=== PATIENT | male | born 1965 | race African-American/Black ===

== ENCOUNTER 2019-10-10 10:10 | Inpatient (IN) | payer MEDICAID ==
[2019-10-10] VITALS (7 sets, daily range): BP systolic 113–133; BP diastolic 52–87
[~2019-10-10] VITALS: Ht 172.7 cm; Wt 62.1 kg
[2019-10-10 13:22] LABS: BG BASE EXCESS -0.6 mmol/L (-2.0-2.0); BG CARBOXYHEMOGLOBIN 0.8 % (0.5-1.5); BG DEOXYHEMOGLOBIN 9.9 % (0.0-5.0); BG FRACTION INSPIRED OXYGEN 21; BG HCO3 ACT 23.8 mmol/L (22.0-26.0); BG METHEMOGLOBIN 0.3 % (0.0-1.5); BG PCO2 37.9 mmHg (35.0-45.0); BG PH 7.415 (7.350-7.450); BG PO2 61.7 mmHg (75.0-100.0); BG SAMPLE SITE RIGHT BRACHIAL; BG TOTAL HEMOGLOBIN 10.4 g/dL (12.0-18.0); BG VENT MODE ROOM AIR
[2019-10-10] MEDS ORDERED: HYDROMORPHONE HCL 4MG TABLET PO PRN (15:00)
[2019-10-10] MEDS ORDERED: ACETAMINOPHEN 325MG TABLET PO PRN ×2 (15:00→15:15)
[2019-10-10] MEDS ORDERED: ONDANSETRON HCL 4MG/2ML INJ IV PRN ×2 (15:00→15:15)
[2019-10-10 15:14] LABS: BASOPHILS % 1.5 % (0.0-2.0); EOSINOPHILS % 1.5 % (0.0-5.0); HEMATOCRIT. 28.8 % (42.0-52.0); HEMOGLOBIN. 8.8 g/dL (14.0-18.0); LYMPHOCYTES % 13.3 % (20.0-50.0); MEAN CORPUSCULAR HEMOGLOBIN 23.4 pg (28.0-32.0); MEAN PLATELET VOLUME 8.7 fl (7.4-10.4); MONOCYTES % 8.4 % (2.0-8.0); NEUTROPHILS % 75.3 % (40.0-76.0); PLATELET 362 x1000/uL (130-400); RED BLOOD CELL COUNT 3.78 mill/uL (4.7-6.1)
[2019-10-10] MEDS ORDERED: NITROGLYCERIN 0.4MG TABLET SL SL PRN (15:15)
[2019-10-10] MEDS ORDERED: ZOLPIDEM TARTRATE 5MG TABLET PO PRN (15:15)
[2019-10-10] MEDS ORDERED: IPRATROPIUM/ALBUTEROL 0.5-3(2.5)MG/3ML NEB NEB PRN (15:15)
[2019-10-10] MEDS ORDERED: DOCUSATE SODIUM 100MG CAPSULE PO PRN (15:15)
[2019-10-10] MEDS ORDERED: GUAIFENESIN 200MG/10ML SUGAR FREE UDC PO PRN (15:15)
[2019-10-10] MEDS ORDERED: LORAZEPAM 0.5MG TABLET PO PRN (15:15)
[2019-10-10] MEDS ORDERED: CLONIDINE 0.1MG TABLET PO PRN (15:15)
[2019-10-10] MEDS ORDERED: MAGNESIUM/ALUMINUM HYDROXIDE/SIMETHICONE 30ML UDC PO PRN (15:15)
[2019-10-10] MEDS ORDERED: DIPHENHYDRAMINE 50MG/ML VIAL IV PRN (15:15)
[2019-10-10] MEDS: TRAMADOL 50MG TABLET PO PRN ×2 (15:35→23:37)
[2019-10-10 15:36] LABS: INR 1.3; PARTIAL THROMBOPLASTIN TIME 34.4 sec (23.4-31.0); PROTHROMBIN TIME 13.6 sec (9.6-11.0)
[2019-10-10] MEDS: ENOXAPARIN 30MG/0.3ML SYR SUBCUT SCH (16:31)
[2019-10-10] MEDS: GABAPENTIN 100MG CAPSULE PO SCH (17:05)
[2019-10-10] MEDS ORDERED: DEXTROSE 50% WATER 50ML SYRINGE IV PRN (18:15)
[2019-10-10] MEDS: ASCORBIC ACID 500 MG TABLET PO SCH (20:11)
[2019-10-10] MEDS: DOCUSATE SODIUM 100MG CAPSULE PO SCH (20:11)
[2019-10-10] MEDS: FAMOTIDINE 20MG TABLET PO SCH (20:11)
[2019-10-10] MEDS: ATORVASTATIN CALCIUM 40MG TABLET PO SCH (20:11)
[2019-10-10] MEDS: BLOOD SUGAR DIAGNOSTIC STRIP TEST SCH (20:12)
[2019-10-10] MEDS: METOPROLOL TARTRATE 25MG TABLET PO SCH (20:12)
[2019-10-10] MEDS: MORPHINE SULFATE 2 MG/ML CPJ (NOT FOR IM USE) IV PRN (20:13)
[2019-10-10] MEDS: INSULIN LISPRO 100 UNITS/ML SUBCUT SCH (20:31)
[2019-10-10] MEDS ORDERED: IOHEXOL-350 100 ML BOTTLE ONE (23:34)
[2019-10-11] VITALS (11 sets, daily range): BP systolic 101–135; BP diastolic 43–91
[2019-10-11] MEDS: BLOOD SUGAR DIAGNOSTIC STRIP TEST SCH ×4 (06:04→21:00)
[2019-10-11] MEDS ORDERED: PANTOPRAZOLE 40MG DR TABLET PO SCH (06:50)
[2019-10-11] MEDS: MORPHINE SULFATE 2 MG/ML CPJ (NOT FOR IM USE) IV PRN ×3 (07:04→21:03)
[2019-10-11 07:12] LABS: BASOPHILS % 1.5 % (0.0-2.0); EOSINOPHILS % 1.9 % (0.0-5.0); HEMOGLOBIN. 8.1 g/dL (14.0-18.0); LYMPHOCYTES % 14.5 % (20.0-50.0); MEAN CORPUSCULAR HEMOGLOBIN 23.7 pg (28.0-32.0); MEAN CORPUSCULAR VOLUME 76.1 fL (80.0-94.0); MONOCYTES % 10.3 % (2.0-8.0); NEUTROPHILS % 71.8 % (40.0-76.0); PLATELET 343 x1000/uL (130-400); RED BLOOD CELL COUNT 3.42 mill/uL (4.7-6.1); RED CELL DISTRIBUTION WIDTH 15.9 % (11.6-14.6)
[2019-10-11 07:19] LABS: PHOSPHORUS 5.8 mg/dL (2.5-4.9)
[2019-10-11] MEDS: POLYETHYLENE GLYCOL 3350 (17GM) 1 DOSE PACK PO SCH ×2 (08:25→08:39)
[2019-10-11] MEDS: GABAPENTIN 100MG CAPSULE PO SCH ×2 (08:25→16:15)
[2019-10-11] MEDS: ZINC SULFATE 220 MG ( 50 ) CAPSULE PO SCH (08:26)
[2019-10-11] MEDS: METOPROLOL TARTRATE 25MG TABLET PO SCH (08:26)
[2019-10-11] MEDS: FAMOTIDINE 20MG TABLET PO SCH (08:26)
[2019-10-11] MEDS: ASCORBIC ACID 500 MG TABLET PO SCH (08:26)
[2019-10-11] MEDS: INSULIN LISPRO 100 UNITS/ML SUBCUT SCH ×4 (08:28→21:14)
[2019-10-11] MEDS ORDERED: LISINOPRIL 20MG TABLET PO SCH (09:00)
[2019-10-11] MEDS ORDERED: ASPIRIN 81MG TABLET PO SCH (09:00)
[2019-10-11] MEDS ORDERED: HEPARIN SODIUM 1,000 UNIT/1ML VIAL IV ONE (09:30)
[2019-10-11] MEDS: SEVELAMER CARBONATE 800 MG TABLET PO SCH ×2 (12:55→16:22)
[2019-10-11] MEDS: ENOXAPARIN 30MG/0.3ML SYR SUBCUT SCH (16:14)
[2019-10-11] MEDS ORDERED: NITROGLYCERIN 0.4MG TABLET SL SL PRN (17:00)
[2019-10-11] MEDS ORDERED: ACETAMINOPHEN 325MG TABLET PO PRN (17:00)
[2019-10-11] MEDS ORDERED: ALPRAZOLAM 0.25 MG TABLET PO PRN (17:00)
[2019-10-11] MEDS ORDERED: VANCOMYCIN 1250MG in DEXTROSE 5% WATER 250ML IV SCH (18:00)
[2019-10-11] MEDS: TRAMADOL 50MG TABLET PO PRN (18:56)
[2019-10-11] MEDS: IPRATROPIUM/ALBUTEROL 0.5-3(2.5)MG/3ML NEB HHN SCH (20:07)
[2019-10-11] MEDS ORDERED: DOCUSATE SODIUM 100MG CAPSULE PO SCH (21:00)
[2019-10-11] MEDS ORDERED: BISACODYL 10MG SUPP PR PRN (21:00)
[2019-10-11] MEDS ORDERED: EPOETIN ALFA 10000UNITS/ML VIAL SUBCUT SCH (21:00)
[2019-10-11] MEDS ORDERED: ASCORBIC ACID 500 MG TABLET PO SCH (21:00)
[2019-10-11] MEDS ORDERED: CHLORHEXIDINE GLUCONATE 4% EXTERNAL USE TOP SCH (21:00)
[2019-10-11] MEDS: ALLOPURINOL 300 MG TABLET PO SCH (21:01)
[2019-10-11] MEDS: CARVEDILOL 3.125 MG TABLET PO SCH (21:02)
[2019-10-11] MEDS: ATORVASTATIN CALCIUM 40MG TABLET PO SCH (21:02)
[2019-10-11] MEDS: DOCUSATE SODIUM 100MG CAPSULE PO SCH (21:02)
[2019-10-11] MEDS: SODIUM CHLORIDE 0.9% INJ 3ML FLUSH IVF SCH (21:14)
[2019-10-11] MEDS ORDERED: IOHEXOL-350 100 ML BOTTLE ONE (23:01)
[2019-10-12] VITALS (25 sets, daily range): BP systolic 26–125; BP diastolic 14–74
[2019-10-12] MEDS: IPRATROPIUM/ALBUTEROL 0.5-3(2.5)MG/3ML NEB HHN SCH ×3 (01:27→19:54)
[2019-10-12 04:07] LABS: BASOPHILS % 2.5 % (0.0-2.0); EOSINOPHILS % 1.9 % (0.0-5.0); HEMATOCRIT. 26.1 % (42.0-52.0); HEMOGLOBIN. 8.1 g/dL (14.0-18.0); LYMPHOCYTES % 15.4 % (20.0-50.0); MEAN CORPUSCULAR HEMOGLOBIN 23.5 pg (28.0-32.0); MEAN CORPUSCULAR VOLUME 75.6 fL (80.0-94.0); MEAN PLATELET VOLUME 8.5 fl (7.4-10.4); MONOCYTES % 11.6 % (2.0-8.0); NEUTROPHILS % 68.6 % (40.0-76.0); PLATELET 295 x1000/uL (130-400); RED BLOOD CELL COUNT 3.44 mill/uL (4.7-6.1)
[2019-10-12 04:09] LABS: CHLORIDE 98 mEq/L (98-107)
[2019-10-12 04:10] LABS: INR 1.3; PROTHROMBIN TIME 13.7 sec (9.6-11.0)
[2019-10-12 04:17] LABS: PHOSPHORUS 4.8 mg/dL (2.5-4.9)
[2019-10-12] MEDS: ALLOPURINOL 300 MG TABLET PO SCH (05:38)
[2019-10-12] MEDS: SODIUM CHLORIDE 0.9% INJ 3ML FLUSH IVF SCH ×2 (05:46→22:00)
[2019-10-12] MEDS ORDERED: BLOOD SUGAR DIAGNOSTIC STRIP TEST NR (06:00)
[2019-10-12] MEDS: BLOOD SUGAR DIAGNOSTIC STRIP TEST SCH (06:03)
[2019-10-12] MEDS: INSULIN LISPRO 100 UNITS/ML SUBCUT SCH (07:20)
[2019-10-12] MEDS: SEVELAMER CARBONATE 800 MG TABLET PO SCH (07:20)
[2019-10-12] MEDS ORDERED: SKIN ADHESIVE 0.7 GM EA TOP ONE ×2 (07:21→07:22)
[2019-10-12] MEDS ORDERED: BACITRACIN 15GM TUBE TOP ONE (07:21)
[2019-10-12] MEDS ORDERED: THROMBIN (BOVINE) 5000 UNITS/VIAL TOP ONE ×3 (07:22→16:15)
[2019-10-12] MEDS ORDERED: NORMAL SALINE 0.9% 10 ML SYR ONE (07:22)
[2019-10-12] MEDS ORDERED: SODIUM CHLORIDE 0.9% IRRIG SOL 8,000 ML IR ONE (07:23)
[2019-10-12] MEDS ORDERED: SODIUM CHLORIDE 0.9% 4,000 ML ONE (07:23)
[2019-10-12] MEDS ORDERED: BACITRACIN 50,000 UNITS/VIAL ONE (07:23)
[2019-10-12] MEDS ORDERED: DEL NIDO ELECTROLYTE-S(PH 7.4) 1,000 ML IV PRN ×2 (08:00)
[2019-10-12] MEDS ORDERED: DOBUTAMINE 250MG PREMIX 250 ML IV PRN (08:00)
[2019-10-12] MEDS ORDERED: NOREPINEPHRINE 4 MG in DEXT 5% WATER 246 ML IV PRN (08:00)
[2019-10-12] MEDS ORDERED: EPINEPHRINE 4 MG in DEXT 5% WATER 246 ML IV PRN (08:00)
[2019-10-12] MEDS ORDERED: CEFAZOLIN 2,000 MG in DEXT 5% WATER 100 ML IV PRN (08:00)
[2019-10-12] MEDS ORDERED: NICARDIPINE 40MG/200ML PREMIX 200 ML IV PRN (08:00)
[2019-10-12] MEDS ORDERED: AMINOCAPROIC ACID 10,000 MG in SODIUM CHLORIDE 0.9% 460 ML IV PRN (08:00)
[2019-10-12] MEDS ORDERED: PAPAVERINE HCL 180MG in SODIUM CHLORIDE 0.9% 24ML IV PRN (08:00)
[2019-10-12] MEDS ORDERED: INSULIN REGULAR (DRIP) 100 UNITS in SODIUM CHLORIDE 0.9% 99 ML IV PRN (08:00)
[2019-10-12] MEDS ORDERED: PHENYLEPHRINE 10 MG in DEXT 5% WATER 249 ML IV PRN (08:00)
[2019-10-12] MEDS ORDERED: HEPARIN 1000 UNITS/ML 10ML ONE ×3 (08:40→15:11)
[2019-10-12] MEDS ORDERED: ACETAMINOPHEN 500MG TABLET ONE (08:40)
[2019-10-12] MEDS ORDERED: FENTANYL CITRATE/PF 50MCG/ML 5ML VIAL ONE (08:45)
[2019-10-12] MEDS ORDERED: MIDAZOLAM HCL 2 MG/2 ML VIAL ONE (08:45)
[2019-10-12] MEDS ORDERED: ETOMIDATE 2MG/ML 10ML VIAL IV ONE (08:47)
[2019-10-12] MEDS ORDERED: LABETALOL HCL 5MG/ML VIAL 20ML IV ONE (08:48)
[2019-10-12] MEDS ORDERED: PHENYLEPHRINE HCL 10 MG/ML 1ML (IV VIAL) IV ONE ×2 (08:49→09:23)
[2019-10-12] MEDS ORDERED: SODIUM CHLORIDE 0.9% 10ML VIAL ONE (08:49)
[2019-10-12] MEDS ORDERED: CHLORHEXIDINE GLUCONATE 4% EXTERNAL USE TOP SCH (09:00)
[2019-10-12] MEDS ORDERED: FAMOTIDINE 20MG TABLET PO SCH (09:00)
[2019-10-12] MEDS ORDERED: ASCORBIC ACID 500 MG TABLET PO SCH (09:00)
[2019-10-12] MEDS ORDERED: LIDOCAINE HCL/PF 2% 20MG/ML 5 ML/VIAL ONE (09:03)
[2019-10-12] MEDS ORDERED: AMINOCAPROIC ACID 250 MG/ML 20ML VIAL ONE ×2 (09:22→10:22)
[2019-10-12] MEDS ORDERED: CALCIUM CHLORIDE 1GM/10ML SYR IV ONE (09:23)
[2019-10-12] MEDS ORDERED: MANNITOL 20% 500 ML IV ONE (09:23)
[2019-10-12] MEDS ORDERED: ALBUMIN HUMAN 25GM/100ML (25%) IV ONE (09:23)
[2019-10-12] MEDS ORDERED: HEPARIN 10,000 UNITS/ML VIAL ONE ×2 (09:24→10:53)
[2019-10-12] MEDS ORDERED: SODIUM BICARBONATE 8.4% 1 MEQ/ML 50ML SYR IV ONE ×2 (09:24→15:03)
[2019-10-12] MEDS ORDERED: VANCOMYCIN HCL 500 MG/VIAL ONE (10:20)
[2019-10-12] MEDS ORDERED: METHYLENE BLUE 50 MG/10 ML AMP IV ONE (10:58)
[2019-10-12] MEDS ORDERED: NITROGLYCERIN 50MG PREMIX 250 ML IV ONE (11:47)
[2019-10-12] MEDS ORDERED: WATER IV SCH (12:00)
[2019-10-12] MEDS ORDERED: DEXTROSE 5% IV SCH (12:00)
[2019-10-12] MEDS ORDERED: DESMOPRESSIN ACETATE IV SCH (12:00)
[2019-10-12] MEDS ORDERED: ROCURONIUM BROMIDE 10MG/ML VIAL 5ML IV ONE ×2 (12:02→13:52)
[2019-10-12] MEDS ORDERED: MILRINONE 20MG-DEXT 5% PREMIX 100 ML IV ONE (13:50)
[2019-10-12] MEDS ORDERED: PROPOFOL 10MG/ML 100ML 100 ML IV ONE (14:39)
[2019-10-12] MEDS ORDERED: SEVOFLURANE 250 ML LIQUID INH ONE ×2 (14:39→14:41)
[2019-10-12] MEDS ORDERED: NEOSTIGMINE METHYLSULFATE 1MG/ML 10 ML VIAL ONE (14:49)
[2019-10-12] MEDS ORDERED: ONDANSETRON HCL 4MG/2ML INJ ONE (14:49)
[2019-10-12] MEDS ORDERED: MAGNESIUM SULFATE 5GM/10ML VIAL IV ONE (15:53)
[2019-10-12] MEDS ORDERED: PROTAMINE SULFATE 10MG/ML VIAL 25ML IV ONE (15:53)
[2019-10-12] MEDS ORDERED: CEFAZOLIN SODIUM 1000MG/VIAL ONE (15:55)
[2019-10-12] MEDS ORDERED: ACETAMINOPHEN 325MG TABLET PO PRN (17:30)
[2019-10-12] MEDS ORDERED: ONDANSETRON HCL 4MG/2ML INJ IV PRN (17:30)
[2019-10-12] MEDS ORDERED: ALBUMIN HUMAN 12.5G/250ML (5%) IV PRN (17:30)
[2019-10-12] MEDS ORDERED: SODIUM CHLORIDE 0.9% 500 ML IV PRN (17:30)
[2019-10-12 17:54] LABS: BG BASE EXCESS 1.2 mmol/L (-2.0-2.0); BG CARBOXYHEMOGLOBIN 0.4 % (0.5-1.5); BG DEOXYHEMOGLOBIN 1.2 % (0.0-5.0); BG HCO3 ACT 23.6 mmol/L (22.0-26.0); BG METHEMOGLOBIN 0.5 % (0.0-1.5); BG OXYGEN SATURATION 98.8 % (92.0-98.5); BG OXYHEMOGLOBIN 97.9 % (94.0-97.0); BG PCO2 28.9 mmHg (35.0-45.0); BG PO2 224.4 mmHg (75.0-100.0); BG SAMPLE SITE A-LINE; BG TIDAL VOLUME(mL) 475 mL; BG TOTAL HEMOGLOBIN 8.1 g/dL (12.0-18.0); BG VENT MODE VENT - A/C; BG VENT RATE 16 set
[2019-10-12] MEDS ORDERED: EPINEPHRINE 1 MG in DEXT 5% WATER 250 ML IV SCH (18:00)
[2019-10-12 18:16] LABS: BASOPHILS % 0.8 % (0.0-2.0); EOSINOPHILS % 0.5 % (0.0-5.0); HEMATOCRIT. 23.2 % (42.0-52.0); HEMOGLOBIN. 7.8 g/dL (14.0-18.0); MEAN CORPUSCULAR HEMOGLOBIN 26.1 pg (28.0-32.0); MEAN CORPUSCULAR VOLUME 77.5 fL (80.0-94.0); MEAN PLATELET VOLUME 7.9 fl (7.4-10.4); MONOCYTES % 4.7 % (2.0-8.0); PLATELET 235 x1000/uL (130-400); RED BLOOD CELL COUNT 2.99 mill/uL (4.7-6.1); RED CELL DISTRIBUTION WIDTH 17.9 % (11.6-14.6)
[2019-10-12 18:21] LABS: INR 1.5; PARTIAL THROMBOPLASTIN TIME 36.9 sec (23.4-31.0)
[2019-10-12 18:24] LABS: BG CARBOXYHEMOGLOBIN 1.2 % (0.5-1.5); BG DEOXYHEMOGLOBIN 40.1 % (0.0-5.0); BG FRACTION INSPIRED OXYGEN 70; BG OXYGEN SATURATION 59.4 % (92.0-98.5); BG OXYHEMOGLOBIN 58.7 % (94.0-97.0); BG PO2 < 30.3 mmHg (75.0-100.0); BG SAMPLE SITE PA LINE; BG TIDAL VOLUME(mL) 475 mL; BG TOTAL HEMOGLOBIN 8.3 g/dL (12.0-18.0); BG VENT MODE VENT - A/C; BG VENT RATE 12 set
[2019-10-12 18:24] LABS: PHOSPHORUS 6.1 mg/dL (2.5-4.9)
[2019-10-12] MEDS: MORPHINE SULFATE 2 MG/ML CPJ (NOT FOR IM USE) IV PRN ×2 (18:55→21:24)
[2019-10-12] MEDS ORDERED: SODIUM CHLORIDE 0.9% IV NR (19:00)
[2019-10-12] MEDS ORDERED: CALCIUM CHLORIDE IV NR (19:00)
[2019-10-12 19:27] LABS: BASOPHILS % 1.1 % (0.0-2.0); EOSINOPHILS % 0.2 % (0.0-5.0); HEMATOCRIT. 22.7 % (42.0-52.0); HEMOGLOBIN. 7.7 g/dL (14.0-18.0); LYMPHOCYTES % 7.6 % (20.0-50.0); MEAN CORPUSCULAR HEMOGLOBIN 26.6 pg (28.0-32.0); MEAN CORPUSCULAR VOLUME 78.5 fL (80.0-94.0); MEAN PLATELET VOLUME 8.2 fl (7.4-10.4); MONOCYTES % 5.8 % (2.0-8.0); NEUTROPHILS % 85.3 % (40.0-76.0); PLATELET 232 x1000/uL (130-400); RED BLOOD CELL COUNT 2.89 mill/uL (4.7-6.1); RED CELL DISTRIBUTION WIDTH 17.7 % (11.6-14.6)
[2019-10-12 20:01] LABS: BG BASE EXCESS -2.3 mmol/L (-2.0-2.0); BG CARBOXYHEMOGLOBIN 0.6 % (0.5-1.5); BG DEOXYHEMOGLOBIN 1.3 % (0.0-5.0); BG FRACTION INSPIRED OXYGEN 70; BG HCO3 ACT 19.8 mmol/L (22.0-26.0); BG METHEMOGLOBIN 0.4 % (0.0-1.5); BG OXYGEN SATURATION 98.7 % (92.0-98.5); BG OXYHEMOGLOBIN 97.7 % (94.0-97.0); BG PCO2 23.5 mmHg (35.0-45.0); BG PH 7.544 (7.350-7.450); BG PIP 20 cmH2O; BG PO2 169.9 mmHg (75.0-100.0); BG SAMPLE SITE A-LINE; BG TIDAL VOLUME(mL) 475 mL; BG TOTAL HEMOGLOBIN 6.3 g/dL (12.0-18.0); BG VENT MODE VENT - A/C; BG VENT RATE 12 set
[2019-10-12] MEDS: CARVEDILOL 3.125 MG TABLET PO SCH (20:09)
[2019-10-12] MEDS: DOCUSATE SODIUM 100MG CAPSULE PO SCH (20:12)
[2019-10-12] MEDS: ATORVASTATIN CALCIUM 40MG TABLET PO SCH (20:12)
[2019-10-12] MEDS: DEXT 5%/0.45% NACL 1000ML 1,000 ML IV SCH (20:35)
[2019-10-12] MEDS: MILRINONE 20MG-DEXT 5% PREMIX 100 ML IV SCH (20:37)
[2019-10-12] MEDS ORDERED: PROPOFOL 10MG/ML 100ML 100 ML IV PRN (21:00)
[2019-10-12 21:23] LABS: MEAN CORPUSCULAR HEMOGLOBIN 26.1 pg (28.0-32.0); MEAN CORPUSCULAR VOLUME 78.8 fL (80.0-94.0); PLATELET 192 x1000/uL (130-400); RED BLOOD CELL COUNT 2.58 mill/uL (4.7-6.1); RED CELL DISTRIBUTION WIDTH 17.5 % (11.6-14.6)
[2019-10-12 21:29] LABS: PHOSPHORUS 5.2 mg/dL (2.5-4.9)
[2019-10-12 21:32] LABS: HEMOGLOBIN 6.7 g/dL (14.0-18.0)
[2019-10-12 21:33] LABS: HEMATOCRIT 20.3 % (42.0-52.0)
[2019-10-12 22:07] LABS: BG BASE EXCESS -1.9 mmol/L (-2.0-2.0); BG DEOXYHEMOGLOBIN 1.8 % (0.0-5.0); BG FRACTION INSPIRED OXYGEN 60; BG HCO3 ACT 21.4 mmol/L (22.0-26.0); BG METHEMOGLOBIN 0.2 % (0.0-1.5); BG OXYGEN SATURATION 98.2 % (92.0-98.5); BG PH 7.472 (7.350-7.450); BG PIP 16 cmH2O; BG PO2 130.4 mmHg (75.0-100.0); BG PRESSURE SUPPORT 12; BG SAMPLE SITE A-LINE; BG TIDAL VOLUME(mL) 475 mL; BG TOTAL HEMOGLOBIN 6.9 g/dL (12.0-18.0); BG VENT MODE VENT - SIMV; BG VENT RATE 10 set
[2019-10-12] MEDS: ACETAMINOPHEN 325MG TABLET PO PRN (22:39)
[2019-10-12] MEDS ORDERED: NOREPINEPHRINE 32 MG in DEXT 5% WATER 468 ML IV PRN (23:15)
[2019-10-12 23:34] LABS: BG BASE EXCESS -1.3 mmol/L (-2.0-2.0); BG CARBOXYHEMOGLOBIN 0.6 % (0.5-1.5); BG DEOXYHEMOGLOBIN 2.4 % (0.0-5.0); BG FRACTION INSPIRED OXYGEN 50; BG HCO3 ACT 23.3 mmol/L (22.0-26.0); BG METHEMOGLOBIN 0.7 % (0.0-1.5); BG OXYGEN SATURATION 97.6 % (92.0-98.5); BG OXYHEMOGLOBIN 96.3 % (94.0-97.0); BG PH 7.405 (7.350-7.450); BG PO2 119.7 mmHg (75.0-100.0); BG SAMPLE SITE A-LINE; BG TIDAL VOLUME(mL) 475 mL; BG TOTAL HEMOGLOBIN 7.7 g/dL (12.0-18.0); BG VENT MODE VENT - SIMV; BG VENT RATE 8 set
[2019-10-13] VITALS (96 sets, daily range): BP systolic 25–140; BP diastolic 16–71
[2019-10-13 00:23] LABS: BASOPHILS % 1.4 % (0.0-2.0); EOSINOPHILS % 0.1 % (0.0-5.0); HEMATOCRIT. 22.7 % (42.0-52.0); HEMOGLOBIN. 7.7 g/dL (14.0-18.0); LYMPHOCYTES % 7.6 % (20.0-50.0); MEAN CORPUSCULAR HEMOGLOBIN 26.8 pg (28.0-32.0); MEAN CORPUSCULAR VOLUME 79.5 fL (80.0-94.0); MEAN PLATELET VOLUME 7.6 fl (7.4-10.4); MONOCYTES % 8.8 % (2.0-8.0); NEUTROPHILS % 82.1 % (40.0-76.0); PLATELET 189 x1000/uL (130-400); RED BLOOD CELL COUNT 2.86 mill/uL (4.7-6.1); RED CELL DISTRIBUTION WIDTH 17.1 % (11.6-14.6)
[2019-10-13] MEDS: MILRINONE 20MG-DEXT 5% PREMIX 100 ML IV SCH (00:33)
[2019-10-13] MEDS: IPRATROPIUM/ALBUTEROL 0.5-3(2.5)MG/3ML NEB HHN SCH ×5 (02:00→19:56)
[2019-10-13] MEDS ORDERED: NICARDIPINE 50 MG in SODIUM CHLORIDE 0.9% 230 ML IV PRN (02:30)
[2019-10-13] MEDS ORDERED: NICARDIPINE 100 MG in SODIUM CHLORIDE 0.9% 60 ML IV PRN (02:30)
[2019-10-13 05:35] LABS: BG BASE EXCESS -1.5 mmol/L (-2.0-2.0); BG CARBOXYHEMOGLOBIN 0.3 % (0.5-1.5); BG DEOXYHEMOGLOBIN 4.5 % (0.0-5.0); BG FRACTION INSPIRED OXYGEN 40; BG HCO3 ACT 23.2 mmol/L (22.0-26.0); BG METHEMOGLOBIN 0.5 % (0.0-1.5); BG OXYGEN SATURATION 95.5 % (92.0-98.5); BG OXYHEMOGLOBIN 94.7 % (94.0-97.0); BG PCO2 39.1 mmHg (35.0-45.0); BG PH 7.391 (7.350-7.450); BG PO2 85.7 mmHg (75.0-100.0); BG PRESSURE SUPPORT 10; BG SAMPLE SITE A-LINE; BG TOTAL HEMOGLOBIN 10.4 g/dL (12.0-18.0); BG VENT MODE MASK - CPAP
[2019-10-13 05:45] LABS: BASOPHILS % 1.3 % (0.0-2.0); EOSINOPHILS % 0.1 % (0.0-5.0); LYMPHOCYTES % 8.6 % (20.0-50.0); MEAN CORPUSCULAR HEMOGLOBIN 27.4 pg (28.0-32.0); MEAN CORPUSCULAR VOLUME 80.9 fL (80.0-94.0); MEAN PLATELET VOLUME 8.8 fl (7.4-10.4); MONOCYTES % 12.6 % (2.0-8.0); NEUTROPHILS % 77.4 % (40.0-76.0); PLATELET 159 x1000/uL (130-400); RED BLOOD CELL COUNT 3.63 mill/uL (4.7-6.1); RED CELL DISTRIBUTION WIDTH 17.4 % (11.6-14.6)
[2019-10-13 05:59] LABS: PHOSPHORUS 6.2 mg/dL (2.5-4.9)
[2019-10-13] MEDS ORDERED: IPRATROPIUM/ALBUTEROL 0.5-3(2.5)MG/3ML NEB HHN PRN (06:15)
[2019-10-13] MEDS: SODIUM CHLORIDE 0.9% INJ 3ML FLUSH IVF SCH ×3 (06:47→21:42)
[2019-10-13 07:00] LABS: HEMATOCRIT. 29.4 % (42.0-52.0)
[2019-10-13] MEDS ORDERED: IPRATROPIUM/ALBUTEROL 0.5-3(2.5)MG/3ML NEB HHN SCH (08:00)
[2019-10-13] MEDS: SEVELAMER CARBONATE 800 MG TABLET PO SCH ×3 (08:20→16:25)
[2019-10-13] MEDS: DOCUSATE SODIUM 100MG CAPSULE PO SCH ×2 (08:40→16:25)
[2019-10-13] MEDS: CARVEDILOL 3.125 MG TABLET PO SCH ×2 (08:41→21:00)
[2019-10-13] MEDS: BACITRACIN 15GM TUBE TOP SCH ×2 (08:41→16:25)
[2019-10-13] MEDS ORDERED: DEXTROSE 50% WATER 50ML SYRINGE IV PRN (08:45)
[2019-10-13] MEDS ORDERED: INSULIN REGULAR (DRIP) 100 UNITS in SODIUM CHLORIDE 0.9% 100 ML IV SCH (09:00)
[2019-10-13] MEDS: BLOOD SUGAR DIAGNOSTIC STRIP TEST SCH ×15 (09:00→23:00)
[2019-10-13] MEDS: OXYCODONE HCL/ACETAMINOPHEN 5/325MG TABLET PO PRN ×2 (10:16→22:07)
[2019-10-13] MEDS: DEXT 5%/0.45% NACL 1000ML 1,000 ML IV SCH (11:00)
[2019-10-13] MEDS: ASPIRIN 81MG TABLET PO SCH (12:09)
[2019-10-13] MEDS ORDERED: KETOROLAC 15MG/ML VIAL IV NR (12:45)
[2019-10-13] MEDS ORDERED: VANCOMYCIN 750 MG PREMIX 150 ML IV NR (13:00)
[2019-10-13] MEDS ORDERED: ALBUMIN HUMAN 25GM/100ML (25%) IV NR ×2 (15:30→17:10)
[2019-10-14] VITALS (94 sets, daily range): BP systolic 73–155; BP diastolic 33–90
[2019-10-14] MEDS: BLOOD SUGAR DIAGNOSTIC STRIP TEST SCH ×19 (00:56→20:30)
[2019-10-14] MEDS ORDERED: INSULIN REGULAR (DRIP) 100 UNITS in SODIUM CHLORIDE 0.9% 100 ML IV SCH (01:55)
[2019-10-14] MEDS: MORPHINE SULFATE 2 MG/ML CPJ (NOT FOR IM USE) IV PRN ×3 (03:34→18:25)
[2019-10-14] MEDS: IPRATROPIUM/ALBUTEROL 0.5-3(2.5)MG/3ML NEB HHN SCH ×6 (04:18→20:19)
[2019-10-14] MEDS: SODIUM CHLORIDE 0.9% INJ 3ML FLUSH IVF SCH ×3 (05:58→20:44)
[2019-10-14 06:01] LABS: PHOSPHORUS 5.9 mg/dL (2.5-4.9)
[2019-10-14 06:03] LABS: HEMATOCRIT. 25.1 % (42.0-52.0); HEMOGLOBIN. 8.1 g/dL (14.0-18.0); MEAN CORPUSCULAR VOLUME 83.3 fL (80.0-94.0); MEAN PLATELET VOLUME 9.3 fl (7.4-10.4); PLATELET 125 x1000/uL (130-400); RED BLOOD CELL COUNT 3.01 mill/uL (4.7-6.1); RED CELL DISTRIBUTION WIDTH 17.6 % (11.6-14.6)
[2019-10-14] MEDS: DEXT 5%/0.45% NACL 1000ML 1,000 ML IV SCH (06:59)
[2019-10-14] MEDS: ZINC SULFATE 220 MG ( 50 ) CAPSULE PO SCH (08:44)
[2019-10-14] MEDS: ASPIRIN 81MG TABLET PO SCH (08:44)
[2019-10-14] MEDS: DOCUSATE SODIUM 100MG CAPSULE PO SCH ×2 (08:44→17:00)
[2019-10-14] MEDS: GABAPENTIN 100MG CAPSULE PO SCH ×2 (08:45→16:59)
[2019-10-14] MEDS: SEVELAMER CARBONATE 800 MG TABLET PO SCH ×3 (08:45→18:11)
[2019-10-14 09:00] LABS: PLATELET ESTIMATE SLIGHTLY DECREASED
[2019-10-14] MEDS: ENOXAPARIN 30MG/0.3ML SYR SUBCUT SCH (09:00)
[2019-10-14] MEDS: CARVEDILOL 3.125 MG TABLET PO SCH ×2 (09:00→21:00)
[2019-10-14] MEDS: BACITRACIN 15GM TUBE TOP SCH ×2 (09:13→17:00)
[2019-10-14] MEDS: OXYCODONE HCL/ACETAMINOPHEN 5/325MG TABLET PO PRN ×2 (10:19→15:12)
[2019-10-14] MEDS: IRON SUCROSE COMPLEX 100 MG/5 ML ML IV SCH (13:26)
[2019-10-14 16:03] LABS: HEMATOCRIT 34.7 % (42.0-52.0); HEMOGLOBIN 11.5 g/dL (14.0-18.0); MEAN CORPUSCULAR VOLUME 84.1 fL (80.0-94.0); PLATELET 123 x1000/uL (130-400); RED BLOOD CELL COUNT 4.12 mill/uL (4.7-6.1); RED CELL DISTRIBUTION WIDTH 18.1 % (11.6-14.6)
[2019-10-14] MEDS ORDERED: EPOETIN ALFA 10000UNITS/ML VIAL SUBCUT SCH (21:00)
[2019-10-14] MEDS: DEXTROSE 50% WATER 50ML SYRINGE IV PRN (22:34)
[2019-10-15] VITALS (34 sets, daily range): BP systolic 91–147; BP diastolic 19–100
[2019-10-15] MEDS: BLOOD SUGAR DIAGNOSTIC STRIP TEST SCH ×9 (02:00→20:17)
[2019-10-15] MEDS: MORPHINE SULFATE 2 MG/ML CPJ (NOT FOR IM USE) IV PRN ×2 (03:07→16:56)
[2019-10-15] MEDS: IPRATROPIUM/ALBUTEROL 0.5-3(2.5)MG/3ML NEB HHN SCH ×6 (04:00→20:34)
[2019-10-15] MEDS: DEXT 5%/0.45% NACL 1000ML 1,000 ML IV SCH (04:50)
[2019-10-15 06:18] LABS: PHOSPHORUS 4.1 mg/dL (2.5-4.9)
[2019-10-15] MEDS: SODIUM CHLORIDE 0.9% INJ 3ML FLUSH IVF SCH ×3 (06:46→21:13)
[2019-10-15 06:50] LABS: BASOPHILS % 1.1 % (0.0-2.0); EOSINOPHILS % 1.8 % (0.0-5.0); HEMATOCRIT. 29.3 % (42.0-52.0); HEMOGLOBIN. 9.6 g/dL (14.0-18.0); LYMPHOCYTES % 8.9 % (20.0-50.0); MEAN CORPUSCULAR HEMOGLOBIN 27.9 pg (28.0-32.0); MEAN PLATELET VOLUME 10.1 fl (7.4-10.4); MONOCYTES % 12.1 % (2.0-8.0); NEUTROPHILS % 76.1 % (40.0-76.0); PLATELET 131 x1000/uL (130-400); RED BLOOD CELL COUNT 3.45 mill/uL (4.7-6.1); RED CELL DISTRIBUTION WIDTH 17.8 % (11.6-14.6)
[2019-10-15] MEDS ORDERED: LIDOCAINE HCL 1% 20ML VIAL (Pyxis) INJ ONE (07:51)
[2019-10-15] MEDS ORDERED: DEXTROSE 50% WATER 50ML SYRINGE IV PRN (08:15)
[2019-10-15] MEDS: INSULIN LISPRO 100 UNITS/ML SUBCUT SCH ×4 (08:15→20:17)
[2019-10-15] MEDS: SEVELAMER CARBONATE 800 MG TABLET PO SCH ×3 (08:43→17:39)
[2019-10-15] MEDS: IRON SUCROSE COMPLEX 100 MG/5 ML ML IV SCH (08:43)
[2019-10-15] MEDS: GABAPENTIN 100MG CAPSULE PO SCH ×2 (08:43→17:38)
[2019-10-15] MEDS: ZINC SULFATE 220 MG ( 50 ) CAPSULE PO SCH (08:43)
[2019-10-15] MEDS: DOCUSATE SODIUM 100MG CAPSULE PO SCH ×2 (08:44→17:38)
[2019-10-15] MEDS: ENOXAPARIN 30MG/0.3ML SYR SUBCUT SCH (08:44)
[2019-10-15] MEDS: CARVEDILOL 3.125 MG TABLET PO SCH ×2 (08:45→20:03)
[2019-10-15] MEDS: ASPIRIN 81MG TABLET PO SCH (08:45)
[2019-10-15] MEDS: BACITRACIN 15GM TUBE TOP SCH ×2 (08:47→17:38)
[2019-10-15] MEDS ORDERED: HEPARIN 1000 UNITS/ML 10ML ONE (08:48)
[2019-10-15] MEDS: OXYCODONE HCL/ACETAMINOPHEN 5/325MG TABLET PO PRN (09:25)
[2019-10-15] MEDS ORDERED: KETOROLAC 15MG/ML VIAL IV NR (19:45)
[2019-10-15] MEDS: ATORVASTATIN CALCIUM 40MG TABLET PO SCH (20:02)
[2019-10-16] VITALS (34 sets, daily range): BP systolic 63–169; BP diastolic 20–147
[2019-10-16] MEDS: IPRATROPIUM/ALBUTEROL 0.5-3(2.5)MG/3ML NEB HHN SCH ×6 (04:00→20:00)
[2019-10-16] MEDS: SODIUM CHLORIDE 0.9% INJ 3ML FLUSH IVF SCH ×3 (05:35→21:50)
[2019-10-16 05:50] LABS: BASOPHILS % 1.2 % (0.0-2.0); EOSINOPHILS % 2.5 % (0.0-5.0); HEMATOCRIT. 29.1 % (42.0-52.0); HEMOGLOBIN. 9.6 g/dL (14.0-18.0); LYMPHOCYTES % 10.2 % (20.0-50.0); MEAN CORPUSCULAR HEMOGLOBIN 28.1 pg (28.0-32.0); MEAN CORPUSCULAR VOLUME 85.5 fL (80.0-94.0); MEAN PLATELET VOLUME 9.7 fl (7.4-10.4); MONOCYTES % 12.8 % (2.0-8.0); NEUTROPHILS % 73.3 % (40.0-76.0); PLATELET 134 x1000/uL (130-400); RED CELL DISTRIBUTION WIDTH 18.6 % (11.6-14.6)
[2019-10-16 05:58] LABS: PHOSPHORUS 3.9 mg/dL (2.5-4.9)
[2019-10-16] MEDS: BLOOD SUGAR DIAGNOSTIC STRIP TEST SCH ×4 (07:50→21:05)
[2019-10-16] MEDS: INSULIN LISPRO 100 UNITS/ML SUBCUT SCH ×4 (08:20→21:09)
[2019-10-16] MEDS: ASPIRIN 81MG TABLET PO SCH (08:41)
[2019-10-16] MEDS: GABAPENTIN 100MG CAPSULE PO SCH ×2 (08:41→17:40)
[2019-10-16] MEDS: ZINC SULFATE 220 MG ( 50 ) CAPSULE PO SCH (08:41)
[2019-10-16] MEDS: IRON SUCROSE COMPLEX 100 MG/5 ML ML IV SCH (08:41)
[2019-10-16] MEDS: DOCUSATE SODIUM 100MG CAPSULE PO SCH ×2 (08:41→17:40)
[2019-10-16] MEDS: OXYCODONE HCL/ACETAMINOPHEN 5/325MG TABLET PO PRN ×3 (08:42→17:40)
[2019-10-16] MEDS: CARVEDILOL 3.125 MG TABLET PO SCH ×2 (08:42→20:59)
[2019-10-16] MEDS: SEVELAMER CARBONATE 800 MG TABLET PO SCH ×3 (08:42→17:40)
[2019-10-16] MEDS: ENOXAPARIN 30MG/0.3ML SYR SUBCUT SCH (08:43)
[2019-10-16] MEDS: BACITRACIN 15GM TUBE TOP SCH ×2 (08:43→17:40)
[2019-10-16] MEDS ORDERED: VANCOMYCIN 750 MG PREMIX 150 ML IV SCH (17:00)
[2019-10-16] MEDS: ATORVASTATIN CALCIUM 40MG TABLET PO SCH (20:59)
[2019-10-16] MEDS ORDERED: EPOETIN ALFA 4000UNITS/ML VIAL SUBCUT SCH (21:00)
[2019-10-16] MEDS: MORPHINE SULFATE 2 MG/ML CPJ (NOT FOR IM USE) IV PRN (22:26)
[2019-10-17] VITALS (13 sets, daily range): BP systolic 97–147; BP diastolic 35–76
[2019-10-17] MEDS: OXYCODONE HCL/ACETAMINOPHEN 5/325MG TABLET PO PRN ×4 (00:01→23:26)
[2019-10-17] MEDS: IPRATROPIUM/ALBUTEROL 0.5-3(2.5)MG/3ML NEB HHN SCH ×4 (04:00→21:18)
[2019-10-17] MEDS: SODIUM CHLORIDE 0.9% INJ 3ML FLUSH IVF SCH ×3 (05:08→21:14)
[2019-10-17] MEDS: MORPHINE SULFATE 2 MG/ML CPJ (NOT FOR IM USE) IV PRN (05:09)
[2019-10-17] MEDS: BLOOD SUGAR DIAGNOSTIC STRIP TEST SCH ×4 (05:50→21:00)
[2019-10-17] MEDS: INSULIN LISPRO 100 UNITS/ML SUBCUT SCH ×4 (05:50→21:14)
[2019-10-17 06:27] LABS: HEMATOCRIT. 31.1 % (42.0-52.0); HEMOGLOBIN. 10.1 g/dL (14.0-18.0); MEAN CORPUSCULAR HEMOGLOBIN 28.1 pg (28.0-32.0); MEAN CORPUSCULAR VOLUME 86.4 fL (80.0-94.0); MEAN PLATELET VOLUME 9.7 fl (7.4-10.4); PLATELET 157 x1000/uL (130-400); RED CELL DISTRIBUTION WIDTH 18.5 % (11.6-14.6)
[2019-10-17 06:31] LABS: CHLORIDE 105 mEq/L (98-107)
[2019-10-17 06:39] LABS: PHOSPHORUS 2.8 mg/dL (2.5-4.9)
[2019-10-17] MEDS: BACITRACIN 15GM TUBE TOP SCH ×2 (09:00→17:51)
[2019-10-17] MEDS: GABAPENTIN 100MG CAPSULE PO SCH ×2 (09:57→17:51)
[2019-10-17] MEDS: SEVELAMER CARBONATE 800 MG TABLET PO SCH ×3 (09:57→17:51)
[2019-10-17] MEDS: ZINC SULFATE 220 MG ( 50 ) CAPSULE PO SCH (09:57)
[2019-10-17] MEDS: ASPIRIN 81MG TABLET PO SCH (09:58)
[2019-10-17] MEDS: CARVEDILOL 3.125 MG TABLET PO SCH ×2 (09:58→21:13)
[2019-10-17] MEDS: DOCUSATE SODIUM 100MG CAPSULE PO SCH ×2 (09:58→17:51)
[2019-10-17] MEDS: IRON SUCROSE COMPLEX 100 MG/5 ML ML IV SCH (09:58)
[2019-10-17] MEDS: ENOXAPARIN 30MG/0.3ML SYR SUBCUT SCH (09:59)
[2019-10-17 12:59] LABS: NUCLEATED RED BLOOD CELLS 2 /100 WBC
[2019-10-17 13:00] LABS: PLATELET ESTIMATE NORMAL
[2019-10-17] MEDS ORDERED: GLIP2.5T3 MT ×2 (14:44→14:47)
[2019-10-17] MEDS ORDERED: SENN-170 MT ×2 (14:45→14:47)
[2019-10-17] MEDS ORDERED: ASPI-1497 MT (14:48)
[2019-10-17] MEDS ORDERED: FOLI0.8T23 MT (14:49)
[2019-10-17] MEDS ORDERED: CARV3.1242 MT (14:51)
[2019-10-17] MEDS ORDERED: ATOR40TA70 MT (14:51)
[2019-10-17] MEDS ORDERED: TRAM50TA3 PO (14:52)
[2019-10-17] MEDS: ATORVASTATIN CALCIUM 40MG TABLET PO SCH (21:13)
[2019-10-18] VITALS: BP 127/64
[2019-10-18] MEDS: IPRATROPIUM/ALBUTEROL 0.5-3(2.5)MG/3ML NEB HHN SCH ×5 (01:15→21:40)
[2019-10-18 04:00] VITALS: BP 105/43
[2019-10-18] MEDS: SODIUM CHLORIDE 0.9% INJ 3ML FLUSH IVF SCH ×3 (06:34→20:56)
[2019-10-18] MEDS: INSULIN LISPRO 100 UNITS/ML SUBCUT SCH ×4 (06:34→20:58)
[2019-10-18] MEDS: BLOOD SUGAR DIAGNOSTIC STRIP TEST SCH ×4 (06:34→20:59)
[2019-10-18 08:00] VITALS: BP 133/50
[2019-10-18] MEDS: DOCUSATE SODIUM 100MG CAPSULE PO SCH ×2 (08:46→17:29)
[2019-10-18] MEDS: GABAPENTIN 100MG CAPSULE PO SCH ×2 (08:46→17:29)
[2019-10-18] MEDS: ZINC SULFATE 220 MG ( 50 ) CAPSULE PO SCH (08:46)
[2019-10-18] MEDS: SEVELAMER CARBONATE 800 MG TABLET PO SCH ×3 (08:46→17:29)
[2019-10-18] MEDS: CARVEDILOL 3.125 MG TABLET PO SCH ×2 (08:48→20:58)
[2019-10-18] MEDS: ENOXAPARIN 30MG/0.3ML SYR SUBCUT SCH (08:49)
[2019-10-18] MEDS: BACITRACIN 15GM TUBE TOP SCH ×2 (08:51→17:29)
[2019-10-18] MEDS: ASPIRIN 81MG TABLET PO SCH (08:52)
[2019-10-18 09:20] LABS: HEMATOCRIT. 32.5 % (42.0-52.0); HEMOGLOBIN. 10.6 g/dL (14.0-18.0); MEAN CORPUSCULAR VOLUME 86.1 fL (80.0-94.0); MEAN PLATELET VOLUME 9.4 fl (7.4-10.4); PLATELET 190 x1000/uL (130-400); RED BLOOD CELL COUNT 3.77 mill/uL (4.7-6.1); RED CELL DISTRIBUTION WIDTH 18.8 % (11.6-14.6)
[2019-10-18] MEDS: IRON SUCROSE COMPLEX 100 MG/5 ML ML IV SCH (09:27)
[2019-10-18 09:37] LABS: PHOSPHORUS 3.4 mg/dL (2.5-4.9)
[2019-10-18] MEDS: OXYCODONE HCL/ACETAMINOPHEN 5/325MG TABLET PO PRN ×3 (10:13→20:54)
[2019-10-18 12:00] VITALS: BP 119/40
[2019-10-18] MEDS: ACETAMINOPHEN 325MG TABLET PO PRN (13:55)
[2019-10-18 14:37] LABS: PLATELET ESTIMATE NORMAL
[2019-10-18 16:00] VITALS: BP 140/66
[2019-10-18 20:00] VITALS: BP 115/94
[2019-10-18] MEDS: ATORVASTATIN CALCIUM 40MG TABLET PO SCH (20:53)
[2019-10-19] VITALS (16 sets, daily range): BP systolic 118–160; BP diastolic 45–80
[2019-10-19] MEDS: IPRATROPIUM/ALBUTEROL 0.5-3(2.5)MG/3ML NEB HHN SCH ×6 (00:44→22:20)
[2019-10-19] MEDS: SODIUM CHLORIDE 0.9% INJ 3ML FLUSH IVF SCH ×3 (06:00→21:32)
[2019-10-19] MEDS: BLOOD SUGAR DIAGNOSTIC STRIP TEST SCH ×4 (07:14→21:00)
[2019-10-19] MEDS: INSULIN LISPRO 100 UNITS/ML SUBCUT SCH ×5 (07:39→21:00)
[2019-10-19] MEDS: SEVELAMER CARBONATE 800 MG TABLET PO SCH ×4 (07:50→17:58)
[2019-10-19 07:54] LABS: PHOSPHORUS 3.4 mg/dL (2.5-4.9)
[2019-10-19] MEDS ORDERED: LIDOCAINE HCL 1% 20ML VIAL (Pyxis) INJ ONE (08:19)
[2019-10-19] MEDS ORDERED: SODIUM BICARBONATE 4% (2.4MEQ) 5ML VIAL IV ONE (08:19)
[2019-10-19] MEDS ORDERED: FENTANYL CITRATE/PF 50MCG/ML 2ML VIAL ONE (08:34)
[2019-10-19] MEDS ORDERED: FENTANYL CITRATE/PF 50MCG/ML 2ML VIAL IV ONE (08:40)
[2019-10-19] MEDS: ENOXAPARIN 30MG/0.3ML SYR SUBCUT SCH (09:00)
[2019-10-19] MEDS: ASPIRIN 81MG TABLET PO SCH (10:39)
[2019-10-19] MEDS: OXYCODONE HCL/ACETAMINOPHEN 5/325MG TABLET PO PRN (10:39)
[2019-10-19] MEDS: DOCUSATE SODIUM 100MG CAPSULE PO SCH ×2 (10:39→17:58)
[2019-10-19] MEDS: CARVEDILOL 3.125 MG TABLET PO SCH ×2 (10:39→21:27)
[2019-10-19] MEDS: ZINC SULFATE 220 MG ( 50 ) CAPSULE PO SCH (10:39)
[2019-10-19] MEDS: GABAPENTIN 100MG CAPSULE PO SCH ×2 (10:39→17:58)
[2019-10-19] MEDS: BACITRACIN 15GM TUBE TOP SCH ×2 (10:40→17:58)
[2019-10-19] MEDS: TRAMADOL 50MG TABLET PO PRN (11:53)
[2019-10-19 12:49] LABS: HEMATOCRIT. 30.9 % (42.0-52.0); HEMOGLOBIN. 10.1 g/dL (14.0-18.0); MEAN CORPUSCULAR HEMOGLOBIN 28.1 pg (28.0-32.0); MEAN CORPUSCULAR VOLUME 85.7 fL (80.0-94.0); MEAN PLATELET VOLUME 9.4 fl (7.4-10.4); PLATELET 203 x1000/uL (130-400); RED CELL DISTRIBUTION WIDTH 19.1 % (11.6-14.6)
[2019-10-19 13:03] LABS: INR 1.3; PARTIAL THROMBOPLASTIN TIME 35.4 sec (23.4-31.0); PROTHROMBIN TIME 13.9 sec (9.6-11.0)
[2019-10-19 13:47] LABS: PLATELET ESTIMATE NORMAL
[2019-10-19] MEDS ORDERED: VANCOMYCIN HCL 750 MG in DEXT 5% WATER 250 ML IV NR ×4 (15:00)
[2019-10-19] MEDS: ATORVASTATIN CALCIUM 40MG TABLET PO SCH (21:26)
[2019-10-20] VITALS: BP 141/54
[2019-10-20 04:00] VITALS: BP 121/59
[2019-10-20] MEDS: IPRATROPIUM/ALBUTEROL 0.5-3(2.5)MG/3ML NEB HHN SCH ×4 (04:00→11:31)
[2019-10-20] MEDS: BLOOD SUGAR DIAGNOSTIC STRIP TEST SCH ×4 (06:00→21:00)
[2019-10-20] MEDS: SODIUM CHLORIDE 0.9% INJ 3ML FLUSH IVF SCH ×3 (06:03→21:33)
[2019-10-20] MEDS: INSULIN LISPRO 100 UNITS/ML SUBCUT SCH ×4 (07:17→21:00)
[2019-10-20 08:00] VITALS: BP 122/87
[2019-10-20] MEDS: SEVELAMER CARBONATE 800 MG TABLET PO SCH ×3 (08:44→17:50)
[2019-10-20] MEDS: GABAPENTIN 100MG CAPSULE PO SCH ×2 (08:44→17:00)
[2019-10-20 08:45] LABS: HEMATOCRIT. 31.7 % (42.0-52.0); HEMOGLOBIN. 10.2 g/dL (14.0-18.0); MEAN CORPUSCULAR HEMOGLOBIN 27.5 pg (28.0-32.0); MEAN CORPUSCULAR VOLUME 85.5 fL (80.0-94.0); MEAN PLATELET VOLUME 9.2 fl (7.4-10.4); PLATELET 220 x1000/uL (130-400); RED BLOOD CELL COUNT 3.71 mill/uL (4.7-6.1); RED CELL DISTRIBUTION WIDTH 19.6 % (11.6-14.6)
[2019-10-20] MEDS: DOCUSATE SODIUM 100MG CAPSULE PO SCH ×2 (08:45→17:00)
[2019-10-20] MEDS: ENOXAPARIN 30MG/0.3ML SYR SUBCUT SCH (08:45)
[2019-10-20] MEDS: ZINC SULFATE 220 MG ( 50 ) CAPSULE PO SCH (08:45)
[2019-10-20 09:31] LABS: PHOSPHORUS 4.8 mg/dL (2.5-4.9)
[2019-10-20] MEDS: MORPHINE SULFATE 2 MG/ML CPJ (NOT FOR IM USE) IV PRN ×2 (09:48→22:40)
[2019-10-20] MEDS: ASPIRIN 81MG TABLET PO SCH (10:17)
[2019-10-20] MEDS: CARVEDILOL 3.125 MG TABLET PO SCH (10:18)
[2019-10-20] MEDS: BACITRACIN 15GM TUBE TOP SCH ×2 (10:44→17:00)
[2019-10-20 11:01] LABS: PLATELET ESTIMATE NORMAL
[2019-10-20 12:00] VITALS: BP 136/66
[2019-10-20] MEDS ORDERED: CARVEDILOL 6.25 MG TABLET PO ONE (12:00)
[2019-10-20] MEDS ORDERED: CARVEDILOL 6.25 MG TABLET PO NR (12:00)
[2019-10-20 16:00] VITALS: BP 153/68
[2019-10-20 20:00] VITALS: BP 115/52
[2019-10-20] MEDS: CARVEDILOL 6.25 MG TABLET PO SCH ×2 (21:00→21:32)
[2019-10-20] MEDS: ATORVASTATIN CALCIUM 40MG TABLET PO SCH ×2 (21:00→21:32)
[2019-10-21 04:00] VITALS: BP 120/59
[2019-10-21] MEDS: SODIUM CHLORIDE 0.9% INJ 3ML FLUSH IVF SCH ×3 (05:54→21:23)
[2019-10-21] MEDS: BLOOD SUGAR DIAGNOSTIC STRIP TEST SCH ×4 (05:55→21:00)
[2019-10-21] MEDS: INSULIN LISPRO 100 UNITS/ML SUBCUT SCH ×4 (07:50→21:00)
[2019-10-21 08:00] VITALS: BP 129/31
[2019-10-21] MEDS: DOCUSATE SODIUM 100MG CAPSULE PO SCH ×2 (08:40→17:00)
[2019-10-21] MEDS: ASPIRIN 81MG TABLET PO SCH (08:40)
[2019-10-21] MEDS: SEVELAMER CARBONATE 800 MG TABLET PO SCH ×3 (08:40→17:50)
[2019-10-21] MEDS: ZINC SULFATE 220 MG ( 50 ) CAPSULE PO SCH (08:40)
[2019-10-21] MEDS: ENOXAPARIN 30MG/0.3ML SYR SUBCUT SCH (08:40)
[2019-10-21] MEDS: GABAPENTIN 100MG CAPSULE PO SCH ×2 (08:40→17:00)
[2019-10-21] MEDS: BACITRACIN 15GM TUBE TOP SCH ×2 (08:41→17:00)
[2019-10-21] MEDS: CARVEDILOL 6.25 MG TABLET PO SCH ×2 (08:41→21:22)
[2019-10-21 12:00] VITALS: BP 113/34
[2019-10-21] MEDS: MORPHINE SULFATE 2 MG/ML CPJ (NOT FOR IM USE) IV PRN ×2 (14:31→21:48)
[2019-10-21 15:39] LABS: HEMATOCRIT. 31.8 % (42.0-52.0); HEMOGLOBIN. 10.4 g/dL (14.0-18.0); MEAN CORPUSCULAR HEMOGLOBIN 27.7 pg (28.0-32.0); MEAN CORPUSCULAR VOLUME 84.9 fL (80.0-94.0); PLATELET 259 x1000/uL (130-400); RED BLOOD CELL COUNT 3.75 mill/uL (4.7-6.1); RED CELL DISTRIBUTION WIDTH 18.9 % (11.6-14.6)
[2019-10-21 16:00] VITALS: BP 130/71
[2019-10-21 16:04] LABS: PHOSPHORUS 5.1 mg/dL (2.5-4.9)
[2019-10-21 16:05] LABS: PLATELET ESTIMATE NORMAL
[2019-10-21 20:44] VITALS: BP 117/68
[2019-10-21] MEDS: ATORVASTATIN CALCIUM 40MG TABLET PO SCH (21:22)
[2019-10-22] VITALS: BP 107/56
[2019-10-22] MEDS: MORPHINE SULFATE 2 MG/ML CPJ (NOT FOR IM USE) IV PRN ×3 (02:11→21:15)
[2019-10-22] MEDS: SODIUM CHLORIDE 0.9% INJ 3ML FLUSH IVF SCH ×3 (05:15→21:15)
[2019-10-22] MEDS: INSULIN LISPRO 100 UNITS/ML SUBCUT SCH ×4 (05:59→21:00)
[2019-10-22] MEDS: BLOOD SUGAR DIAGNOSTIC STRIP TEST SCH ×4 (05:59→21:00)
[2019-10-22 08:24] VITALS: BP 102/26
[2019-10-22] MEDS: CARVEDILOL 6.25 MG TABLET PO SCH ×2 (09:00→21:14)
[2019-10-22] MEDS: ASPIRIN 81MG TABLET PO SCH (09:25)
[2019-10-22] MEDS: ZINC SULFATE 220 MG ( 50 ) CAPSULE PO SCH (09:25)
[2019-10-22] MEDS: GABAPENTIN 100MG CAPSULE PO SCH ×3 (09:25→17:30)
[2019-10-22] MEDS: SEVELAMER CARBONATE 800 MG TABLET PO SCH ×3 (09:25→17:50)
[2019-10-22] MEDS: DOCUSATE SODIUM 100MG CAPSULE PO SCH ×3 (09:25→17:30)
[2019-10-22] MEDS: ENOXAPARIN 30MG/0.3ML SYR SUBCUT SCH (09:27)
[2019-10-22] MEDS: BACITRACIN 15GM TUBE TOP SCH ×2 (09:28→17:30)
[2019-10-22 12:06] VITALS: BP 116/46
[2019-10-22 16:15] LABS: BASOPHILS % 1.3 % (0.0-2.0); EOSINOPHILS % 4.6 % (0.0-5.0); HEMATOCRIT. 35.3 % (42.0-52.0); HEMOGLOBIN. 11.4 g/dL (14.0-18.0); LYMPHOCYTES % 18.6 % (20.0-50.0); MEAN CORPUSCULAR HEMOGLOBIN 27.8 pg (28.0-32.0); MEAN CORPUSCULAR VOLUME 85.7 fL (80.0-94.0); MEAN PLATELET VOLUME 9.2 fl (7.4-10.4); MONOCYTES % 14.4 % (2.0-8.0); NEUTROPHILS % 61.1 % (40.0-76.0); PLATELET 269 x1000/uL (130-400); RED BLOOD CELL COUNT 4.12 mill/uL (4.7-6.1); RED CELL DISTRIBUTION WIDTH 18.8 % (11.6-14.6)
[2019-10-22 16:36] VITALS: BP 121/57
[2019-10-22] MEDS: DEXTROSE 50% WATER 50ML SYRINGE IV PRN (19:05)
[2019-10-22] MEDS: OXYCODONE HCL/ACETAMINOPHEN 5/325MG TABLET PO PRN (19:59)
[2019-10-22 20:00] VITALS: BP 163/86
[2019-10-22] MEDS: ATORVASTATIN CALCIUM 40MG TABLET PO SCH (21:13)
[2019-10-23 06:17] LABS: BASOPHILS % 0.8 % (0.0-2.0); HEMATOCRIT. 33.9 % (42.0-52.0); HEMOGLOBIN. 11.1 g/dL (14.0-18.0); LYMPHOCYTES % 12.7 % (20.0-50.0); MEAN CORPUSCULAR VOLUME 85.9 fL (80.0-94.0); MEAN PLATELET VOLUME 9.1 fl (7.4-10.4); MONOCYTES % 12.7 % (2.0-8.0); NEUTROPHILS % 69.8 % (40.0-76.0); PLATELET 309 x1000/uL (130-400); RED BLOOD CELL COUNT 3.95 mill/uL (4.7-6.1); RED CELL DISTRIBUTION WIDTH 18.9 % (11.6-14.6)
[2019-10-23 06:47] LABS: PHOSPHORUS 5.5 mg/dL (2.5-4.9)
[2019-10-23] MEDS: INSULIN LISPRO 100 UNITS/ML SUBCUT SCH ×4 (07:50→21:00)
[2019-10-23 08:00] VITALS: BP 154/84
[2019-10-23] MEDS: BLOOD SUGAR DIAGNOSTIC STRIP TEST SCH ×4 (08:05→21:00)
[2019-10-23] MEDS: ASPIRIN 81MG TABLET PO SCH (08:29)
[2019-10-23] MEDS: SEVELAMER CARBONATE 800 MG TABLET PO SCH ×3 (08:29→16:56)
[2019-10-23] MEDS: DOCUSATE SODIUM 100MG CAPSULE PO SCH ×2 (08:29→16:56)
[2019-10-23] MEDS: GABAPENTIN 100MG CAPSULE PO SCH ×2 (08:29→16:56)
[2019-10-23] MEDS: ENOXAPARIN 30MG/0.3ML SYR SUBCUT SCH (08:30)
[2019-10-23] MEDS: BACITRACIN 15GM TUBE TOP SCH ×2 (08:30→17:00)
[2019-10-23] MEDS: ZINC SULFATE 220 MG ( 50 ) CAPSULE PO SCH (08:30)
[2019-10-23] MEDS: CARVEDILOL 6.25 MG TABLET PO SCH ×2 (09:00→21:23)
[2019-10-23] MEDS: MORPHINE SULFATE 2 MG/ML CPJ (NOT FOR IM USE) IV PRN ×4 (09:04→21:45)
[2019-10-23] MEDS: TRAMADOL 50MG TABLET PO PRN (10:46)
[2019-10-23 12:00] VITALS: BP 128/41
[2019-10-23] MEDS: ACETAMINOPHEN 325MG TABLET PO PRN (12:58)
[2019-10-23] MEDS ORDERED: VANCOMYCIN 750 MG in DEXT 5% WATER 250 ML IV SCH (14:00)
[2019-10-23 16:00] VITALS: BP 109/35
[2019-10-23 20:00] VITALS: BP 132/67
[2019-10-23] MEDS: ATORVASTATIN CALCIUM 40MG TABLET PO SCH (21:21)
[2019-10-23] MEDS: SODIUM CHLORIDE 0.9% INJ 3ML FLUSH IVF SCH (21:23)
[2019-10-24] VITALS: BP 128/56
[2019-10-24 04:00] VITALS: BP 125/63
[2019-10-24] MEDS: SODIUM CHLORIDE 0.9% INJ 3ML FLUSH IVF SCH ×3 (05:37→23:22)
[2019-10-24] MEDS: MORPHINE SULFATE 2 MG/ML CPJ (NOT FOR IM USE) IV PRN ×2 (05:39→10:43)
[2019-10-24 06:46] LABS: BASOPHILS % 1.2 % (0.0-2.0); EOSINOPHILS % 6.4 % (0.0-5.0); HEMATOCRIT. 31.9 % (42.0-52.0); HEMOGLOBIN. 10.3 g/dL (14.0-18.0); LYMPHOCYTES % 15.7 % (20.0-50.0); MEAN CORPUSCULAR HEMOGLOBIN 27.4 pg (28.0-32.0); MEAN PLATELET VOLUME 9.1 fl (7.4-10.4); MONOCYTES % 13.6 % (2.0-8.0); NEUTROPHILS % 63.1 % (40.0-76.0); PLATELET 342 x1000/uL (130-400); RED BLOOD CELL COUNT 3.75 mill/uL (4.7-6.1); RED CELL DISTRIBUTION WIDTH 18.2 % (11.6-14.6)
[2019-10-24] MEDS: INSULIN LISPRO 100 UNITS/ML SUBCUT SCH ×4 (06:51→21:00)
[2019-10-24] MEDS: BLOOD SUGAR DIAGNOSTIC STRIP TEST SCH ×4 (06:51→21:00)
[2019-10-24 06:53] LABS: PHOSPHORUS 5.7 mg/dL (2.5-4.9)
[2019-10-24 08:00] VITALS: BP 126/50
[2019-10-24] MEDS: ZINC SULFATE 220 MG ( 50 ) CAPSULE PO SCH (08:32)
[2019-10-24] MEDS: DOCUSATE SODIUM 100MG CAPSULE PO SCH ×2 (08:32→17:36)
[2019-10-24] MEDS: ASPIRIN 81MG TABLET PO SCH (08:32)
[2019-10-24] MEDS: GABAPENTIN 100MG CAPSULE PO SCH ×2 (08:32→17:28)
[2019-10-24] MEDS: ENOXAPARIN 30MG/0.3ML SYR SUBCUT SCH (08:33)
[2019-10-24] MEDS: TRAMADOL 50MG TABLET PO PRN (08:42)
[2019-10-24] MEDS: CARVEDILOL 6.25 MG TABLET PO SCH ×2 (08:44→20:42)
[2019-10-24] MEDS: SEVELAMER CARBONATE 800 MG TABLET PO SCH ×3 (08:44→17:28)
[2019-10-24] MEDS: BACITRACIN 15GM TUBE TOP SCH ×2 (09:00→17:00)
[2019-10-24 12:00] VITALS: BP 127/71
[2019-10-24 16:00] VITALS: BP 114/61
[2019-10-24] MEDS: ACETAMINOPHEN 325MG TABLET PO PRN (17:29)
[2019-10-24 20:25] VITALS: BP 116/78
[2019-10-24] MEDS: ATORVASTATIN CALCIUM 40MG TABLET PO SCH (20:42)
[2019-10-25] VITALS: BP 129/46
[2019-10-25 04:00] VITALS: BP 120/51
[2019-10-25] MEDS: SODIUM CHLORIDE 0.9% INJ 3ML FLUSH IVF SCH ×3 (05:50→21:43)
[2019-10-25 06:03] LABS: BASOPHILS % 1.3 % (0.0-2.0); EOSINOPHILS % 5.1 % (0.0-5.0); HEMATOCRIT. 30.7 % (42.0-52.0); HEMOGLOBIN. 10.1 g/dL (14.0-18.0); LYMPHOCYTES % 15.6 % (20.0-50.0); MEAN CORPUSCULAR VOLUME 85.5 fL (80.0-94.0); MEAN PLATELET VOLUME 9.3 fl (7.4-10.4); MONOCYTES % 12.8 % (2.0-8.0); NEUTROPHILS % 65.2 % (40.0-76.0); PLATELET 336 x1000/uL (130-400); RED BLOOD CELL COUNT 3.59 mill/uL (4.7-6.1); RED CELL DISTRIBUTION WIDTH 18.2 % (11.6-14.6)
[2019-10-25 06:28] LABS: PHOSPHORUS 5.2 mg/dL (2.5-4.9)
[2019-10-25] MEDS: BLOOD SUGAR DIAGNOSTIC STRIP TEST SCH ×4 (07:20→21:00)
[2019-10-25] MEDS: INSULIN LISPRO 100 UNITS/ML SUBCUT SCH ×4 (07:50→21:00)
[2019-10-25 08:00] VITALS: BP 104/47
[2019-10-25] MEDS: CARVEDILOL 6.25 MG TABLET PO SCH ×2 (09:00→21:00)
[2019-10-25] MEDS: ENOXAPARIN 30MG/0.3ML SYR SUBCUT SCH (09:00)
[2019-10-25] MEDS: SEVELAMER CARBONATE 800 MG TABLET PO SCH ×4 (09:46→18:30)
[2019-10-25] MEDS: GABAPENTIN 100MG CAPSULE PO SCH ×3 (09:46→18:30)
[2019-10-25] MEDS: ZINC SULFATE 220 MG ( 50 ) CAPSULE PO SCH (09:47)
[2019-10-25] MEDS: ASPIRIN 81MG TABLET PO SCH (09:47)
[2019-10-25] MEDS: BACITRACIN 15GM TUBE TOP SCH ×2 (09:50→18:31)
[2019-10-25] MEDS: DOCUSATE SODIUM 100MG CAPSULE PO SCH ×3 (10:02→18:31)
[2019-10-25 12:00] VITALS: BP 101/82
[2019-10-25 16:00] VITALS: BP 129/65
[2019-10-25] MEDS: ATORVASTATIN CALCIUM 40MG TABLET PO SCH (21:00)
[2019-10-26] MEDS: SODIUM CHLORIDE 0.9% INJ 3ML FLUSH IVF SCH ×3 (06:00→22:00)
[2019-10-26 06:38] LABS: BASOPHILS % 1.5 % (0.0-2.0); EOSINOPHILS % 4.6 % (0.0-5.0); HEMOGLOBIN. 10.2 g/dL (14.0-18.0); LYMPHOCYTES % 13.7 % (20.0-50.0); MEAN CORPUSCULAR HEMOGLOBIN 27.3 pg (28.0-32.0); MEAN CORPUSCULAR VOLUME 85.6 fL (80.0-94.0); MEAN PLATELET VOLUME 8.9 fl (7.4-10.4); MONOCYTES % 12.6 % (2.0-8.0); NEUTROPHILS % 67.6 % (40.0-76.0); PLATELET 353 x1000/uL (130-400); RED BLOOD CELL COUNT 3.74 mill/uL (4.7-6.1); RED CELL DISTRIBUTION WIDTH 18.1 % (11.6-14.6)
[2019-10-26 07:17] LABS: PHOSPHORUS 5.5 mg/dL (2.5-4.9)
[2019-10-26] MEDS: BLOOD SUGAR DIAGNOSTIC STRIP TEST SCH ×4 (07:19→21:00)
[2019-10-26] MEDS: INSULIN LISPRO 100 UNITS/ML SUBCUT SCH ×4 (07:50→21:37)
[2019-10-26 08:00] VITALS: BP 125/54
[2019-10-26] MEDS: ZINC SULFATE 220 MG ( 50 ) CAPSULE PO SCH (09:00)
[2019-10-26] MEDS: CARVEDILOL 6.25 MG TABLET PO SCH ×2 (09:00→20:10)
[2019-10-26] MEDS: SEVELAMER CARBONATE 800 MG TABLET PO SCH ×3 (10:06→17:50)
[2019-10-26] MEDS: ASPIRIN 81MG TABLET PO SCH (10:07)
[2019-10-26] MEDS: GABAPENTIN 100MG CAPSULE PO SCH ×2 (10:07→17:00)
[2019-10-26] MEDS: ENOXAPARIN 30MG/0.3ML SYR SUBCUT SCH (10:12)
[2019-10-26] MEDS: DOCUSATE SODIUM 100MG CAPSULE PO SCH ×2 (10:13→17:00)
[2019-10-26] MEDS: BACITRACIN 15GM TUBE TOP SCH ×2 (10:13→17:00)
[2019-10-26 12:00] VITALS: BP 129/62
[2019-10-26 16:00] VITALS: BP 141/31
[2019-10-26] MEDS: HYDROCODONE/ACETAMINOPHEN 5/325MG TABLET PO PRN (20:11)
[2019-10-26] MEDS: ATORVASTATIN CALCIUM 40MG TABLET PO SCH (20:11)
[2019-10-27] MEDS: SODIUM CHLORIDE 0.9% INJ 3ML FLUSH IVF SCH ×2 (06:00→14:00)
[2019-10-27 06:55] LABS: BASOPHILS % 1.2 % (0.0-2.0); CHLORIDE 106 mEq/L (98-107); EOSINOPHILS % 2.3 % (0.0-5.0); HEMOGLOBIN. 10.5 g/dL (14.0-18.0); LYMPHOCYTES % 7.1 % (20.0-50.0); MEAN CORPUSCULAR HEMOGLOBIN 27.2 pg (28.0-32.0); MEAN CORPUSCULAR VOLUME 85.6 fL (80.0-94.0); MEAN PLATELET VOLUME 8.9 fl (7.4-10.4); MONOCYTES % 8.8 % (2.0-8.0); NEUTROPHILS % 80.6 % (40.0-76.0); PLATELET 365 x1000/uL (130-400); RED BLOOD CELL COUNT 3.86 mill/uL (4.7-6.1); RED CELL DISTRIBUTION WIDTH 17.8 % (11.6-14.6)
[2019-10-27 07:09] LABS: PHOSPHORUS 4.8 mg/dL (2.5-4.9)
[2019-10-27] MEDS: BLOOD SUGAR DIAGNOSTIC STRIP TEST SCH ×3 (07:20→16:55)
[2019-10-27] MEDS: INSULIN LISPRO 100 UNITS/ML SUBCUT SCH ×3 (07:50→16:56)
[2019-10-27 08:00] VITALS: BP 160/60
[2019-10-27] MEDS: DOCUSATE SODIUM 100MG CAPSULE PO SCH ×2 (09:00→16:55)
[2019-10-27] MEDS: BACITRACIN 15GM TUBE TOP SCH ×2 (09:00→16:55)
[2019-10-27] MEDS: CARVEDILOL 6.25 MG TABLET PO SCH (09:00)
[2019-10-27] MEDS: SEVELAMER CARBONATE 800 MG TABLET PO SCH ×3 (09:22→16:56)
[2019-10-27] MEDS: GABAPENTIN 100MG CAPSULE PO SCH ×2 (09:22→16:54)
[2019-10-27] MEDS: ZINC SULFATE 220 MG ( 50 ) CAPSULE PO SCH (09:22)
[2019-10-27] MEDS: ASPIRIN 81MG TABLET PO SCH (09:22)
[2019-10-27] MEDS: ENOXAPARIN 30MG/0.3ML SYR SUBCUT SCH (09:23)
[2019-10-27] MEDS: HYDROCODONE/ACETAMINOPHEN 5/325MG TABLET PO PRN ×2 (09:38→16:55)
[2019-10-27 12:00] VITALS: BP 112/31
[2019-10-27] MEDS: ACETAMINOPHEN 325MG TABLET PO PRN (13:20)
[2019-10-27 16:00] VITALS: BP 111/80
[2019-10-27 18:05] VITALS: BP 93/64
[2019-10-27] MEDS ORDERED: CEFEPIME 1,000 MG in DEXTROSE 5% WATER 50 ML IV SCH (19:30)
== END 2019-10-27 20:15 | DRG 166 ==
LOC: 3WST 10:10 → CVICU 10-12 09:24 → 3WST 10-17 01:21 → 6WST 10-17 23:50
PROVIDERS: ADMIT Internal Medicine; ATTEND Internal Medicine
PROC: 021009W Bypass Coronary Artery, One Artery from Aorta with Autologous Venous Tissue, Open Approach (ICD-10-PCS; principal; 2019-10-12)
PROC: 03B10ZZ Excision of Left Internal Mammary Artery, Open Approach (ICD-10-PCS; 2019-10-12)
PROC: 06BQ4ZZ Excision of Left Saphenous Vein, Percutaneous Endoscopic Approach (ICD-10-PCS; 2019-10-12)
PROC: 06BP0ZZ Excision of Right Saphenous Vein, Open Approach (ICD-10-PCS; 2019-10-12)
PROC: 0W9930Z Drainage of Right Pleural Cavity with Drainage Device, Percutaneous Approach (ICD-10-PCS; 2019-10-12)
PROC: 5A1221Z Performance of Cardiac Output, Continuous (ICD-10-PCS; 2019-10-12)
DX: I25.10 Atherosclerotic heart disease of native coronary artery without angina pectoris (principal); I21.4 Non-ST elevation (NSTEMI) myocardial infarction; E43 Unspecified severe protein-calorie malnutrition; I13.2 Hypertensive heart and chronic kidney disease with heart failure and with stage 5 chronic kidney disease, or end stage renal disease; E11.22 Type 2 diabetes mellitus with diabetic chronic kidney disease; E11.52 Type 2 diabetes mellitus with diabetic peripheral angiopathy with gangrene; N18.6 End stage renal disease; Z99.2 Dependence on renal dialysis; E78.5 Hyperlipidemia, unspecified; F17.210 Nicotine dependence, cigarettes, uncomplicated; J44.9 Chronic obstructive pulmonary disease, unspecified; D64.9 Anemia, unspecified; I50.22 Chronic systolic (congestive) heart failure
CPT/HCPCS: 36415; 36558; 36589; 36600; 71045; 73130; 73206; 76937; 77001; 80048; 80053; 80202; 82375; 82805; 82962; 83036; 83735; 84100; 84132; 84134; 84145; 84478; 84484; 85025; 85027; 85347; 85520; 86850; 86900; 86920; 86927; 87070; 87077; 87186; 93005; 93306; 93922; 93970; 94002; 94640; 97110; 97116; 97162; 97166; 97530; 97535; 99152; 99153; C1725; C1750; C1751; C1752; C1758; C1769; J0690; J0692; J0885; J1200; J1642; J1644; J1650; J1815; J1885; J2250; J2260; J2270; J2370; J2405; J2597; J2704; J2710; J2720; J3010; J3370; J3475; J3490; J7030; J7050; J7060; L1830; L3908; P9016; P9017; P9034; P9041; P9047; Q9967; Q9968; G0500

== ENCOUNTER 2019-11-19 14:12 | Inpatient (IN) | payer MEDICAID ==
[~2019-11-19] VITALS: Ht 182.9 cm; Wt 68.9 kg
[~2019-11-19 14:12] MED LIST: ASPI-1497 MT; ATOR40TA70 MT; CARV3.1242 MT; FOLI0.8T23 MT; GLIP2.5T3 MT; SENN-170 MT; TRAM50TA3 PO
[2019-11-19] MEDS ORDERED: SODIUM CHLORIDE 0.9% 1000ML BAG (SEPSIS BOLUS) IV ONE (14:45)
[2019-11-19 15:53] LABS: BASOPHILS % 1.3 % (0.0-2.0); EOSINOPHILS % 1.3 % (0.0-5.0); HEMOGLOBIN. 9.4 g/dL (14.0-18.0); LYMPHOCYTES % 9.8 % (20.0-50.0); MEAN CORPUSCULAR HEMOGLOBIN 25.1 pg (28.0-32.0); MEAN CORPUSCULAR VOLUME 79.6 fL (80.0-94.0); MEAN PLATELET VOLUME 9.2 fl (7.4-10.4); MONOCYTES % 6.6 % (2.0-8.0); PLATELET 245 x1000/uL (130-400); RED BLOOD CELL COUNT 3.77 mill/uL (4.7-6.1); RED CELL DISTRIBUTION WIDTH 17.9 % (11.6-14.6)
[2019-11-19 15:55] LABS: CLARITY URINE CLOUDY (CLEAR); COLOR URINE YELLOW (YELLOW); KETONES URINE TRACE (NEGATIVE); LEUKOCYTE ESTERASE URINE 3+ (NEGATIVE); NITRITE URINE NEGATIVE (NEGATIVE); OCCULT BLOOD URINE 2+ (NEGATIVE); PH URINE 7.5 (4.5-8.0); PROTEIN URINE 4+ (NEGATIVE)
[2019-11-19 16:02] LABS: INR 1.3; PROTHROMBIN TIME 14.1 sec (9.6-11.0)
[2019-11-19 16:03] LABS: CHLORIDE 94 mEq/L (98-107)
[2019-11-19] MEDS ORDERED: ASPIRIN 325MG TABLET PO ONE (17:00)
[2019-11-19] MEDS ORDERED: LEVOFLOXACIN 500MG PREMIX 100 ML IV ONE (17:00)
[2019-11-19] MEDS ORDERED: ACETAMINOPHEN 325MG TABLET PO PRN (18:30)
[2019-11-19] MEDS ORDERED: DOCUSATE SODIUM 100MG CAPSULE PO PRN (18:30)
[2019-11-19] MEDS ORDERED: DIPHENHYDRAMINE 50MG/ML VIAL IV PRN (18:30)
[2019-11-19] MEDS ORDERED: ZOLPIDEM TARTRATE 5MG TABLET PO PRN (18:30)
[2019-11-19] MEDS ORDERED: DEXTROSE 50% WATER 50ML SYRINGE IV PRN (18:30)
[2019-11-19] MEDS ORDERED: MAGNESIUM/ALUMINUM HYDROXIDE/SIMETHICONE 30ML UDC PO PRN (18:30)
[2019-11-19] MEDS ORDERED: ONDANSETRON HCL 4MG/2ML INJ IV PRN (18:30)
[2019-11-19] MEDS ORDERED: NITROGLYCERIN 0.4MG TABLET SL SL PRN (18:30)
[2019-11-19] MEDS ORDERED: IPRATROPIUM/ALBUTEROL 0.5-3(2.5)MG/3ML NEB NEB PRN (18:30)
[2019-11-19] MEDS ORDERED: ENOXAPARIN 40MG/0.4ML SYR SUBCUT SCH (18:30)
[2019-11-19] MEDS ORDERED: GUAIFENESIN 200MG/10ML SUGAR FREE UDC PO PRN (18:30)
[2019-11-19] MEDS ORDERED: CLONIDINE 0.1MG TABLET PO PRN (18:30)
[2019-11-19] MEDS ORDERED: HYDRALAZINE 20MG/ML VIAL IV ONE (18:45)
[2019-11-19] MEDS ORDERED: PIPERACILLIN/TAZOBACTAM 2.25 G in DEXTROSE 5% WATER 50 ML IV NR (20:15)
[2019-11-19] MEDS: INSULIN LISPRO 100 UNITS/ML SUBCUT SCH (20:49)
[2019-11-19] MEDS: FAMOTIDINE 20MG TABLET PO SCH (21:00)
[2019-11-19] MEDS: BLOOD SUGAR DIAGNOSTIC STRIP TEST SCH (21:00)
[2019-11-19] MEDS: ASCORBIC ACID 500 MG TABLET PO SCH (21:30)
[2019-11-19] MEDS: GUAIFENESIN/DM 600MG/30MG ER TAB 12HR PO SCH (21:31)
[2019-11-19] MEDS: ATORVASTATIN CALCIUM 40MG TABLET PO SCH (21:31)
[2019-11-19 22:00] VITALS: BP 103/49
[2019-11-19] MEDS: ENOXAPARIN 60MG/0.6ML SYR SUBCUT SCH (22:00)
[2019-11-19] MEDS ORDERED: VANCOMYCIN 1 G PREMIX 200 ML IV SCH (23:30)
[2019-11-20] VITALS: BP 105/44
[2019-11-20] MEDS: ASCORBIC ACID 500 MG TABLET PO SCH ×3 (00:32→21:58)
[2019-11-20] MEDS: ENOXAPARIN 60MG/0.6ML SYR SUBCUT SCH ×2 (00:32→21:57)
[2019-11-20] MEDS: ZOLPIDEM TARTRATE 5MG TABLET PO PRN (00:33)
[2019-11-20] MEDS: FAMOTIDINE 20MG TABLET PO SCH ×2 (00:33→21:58)
[2019-11-20] MEDS: GUAIFENESIN/DM 600MG/30MG ER TAB 12HR PO SCH ×3 (00:33→21:58)
[2019-11-20] MEDS: ATORVASTATIN CALCIUM 40MG TABLET PO SCH ×2 (00:35→21:58)
[2019-11-20 04:00] VITALS: BP 106/42
[2019-11-20] MEDS ORDERED: PIPERACILLIN/TAZ 3.375G PREMIX 50 ML IV SCH (04:00)
[2019-11-20] MEDS: CARVEDILOL 3.125 MG TABLET PO SCH ×2 (06:00→18:26)
[2019-11-20] MEDS: PIPERACILLIN/TAZOBACTAM 2.25 G in DEXTROSE 5% WATER 50 ML IV SCH ×3 (06:34→22:16)
[2019-11-20] MEDS: BLOOD SUGAR DIAGNOSTIC STRIP TEST SCH ×4 (07:11→22:16)
[2019-11-20 08:00] VITALS: BP 103/48
[2019-11-20] MEDS: INSULIN LISPRO 100 UNITS/ML SUBCUT SCH ×4 (08:53→22:46)
[2019-11-20 08:55] LABS: CREATINE KINASE 25 IU/L (39-308)
[2019-11-20 08:56] LABS: CREATINE KINASE MB FRACTION < 1.0 ng/mL (0.5-3.6)
[2019-11-20] MEDS: SEVELAMER CARBONATE 800 MG TABLET PO SCH ×3 (08:56→17:28)
[2019-11-20] MEDS: ZINC SULFATE 220 MG ( 50 ) CAPSULE PO SCH (08:56)
[2019-11-20] MEDS: ASPIRIN 325MG EC TABLET PO SCH (09:07)
[2019-11-20 12:00] VITALS: BP 100/42
[2019-11-20 16:00] VITALS: BP 101/49
[2019-11-20 20:00] VITALS: BP 101/66
[2019-11-20] MEDS: EPOETIN ALFA 10000UNITS/ML VIAL SUBCUT SCH (21:58)
[2019-11-21] VITALS (7 sets, daily range): BP systolic 93–118; BP diastolic 34–76
[2019-11-21] MEDS: CARVEDILOL 3.125 MG TABLET PO SCH ×2 (05:45→17:38)
[2019-11-21] MEDS: PIPERACILLIN/TAZOBACTAM 2.25 G in DEXTROSE 5% WATER 50 ML IV SCH ×3 (05:50→22:54)
[2019-11-21] MEDS: BLOOD SUGAR DIAGNOSTIC STRIP TEST SCH ×4 (05:54→21:14)
[2019-11-21 09:16] LABS: EOSINOPHILS % 6.4 % (0.0-5.0); HEMATOCRIT. 31.2 % (42.0-52.0); HEMOGLOBIN. 9.8 g/dL (14.0-18.0); LYMPHOCYTES % 8.5 % (20.0-50.0); MEAN CORPUSCULAR HEMOGLOBIN 25.2 pg (28.0-32.0); MEAN CORPUSCULAR VOLUME 80.4 fL (80.0-94.0); MEAN PLATELET VOLUME 9.1 fl (7.4-10.4); MONOCYTES % 10.3 % (2.0-8.0); NEUTROPHILS % 73.8 % (40.0-76.0); PLATELET 225 x1000/uL (130-400); RED BLOOD CELL COUNT 3.88 mill/uL (4.7-6.1); RED CELL DISTRIBUTION WIDTH 17.9 % (11.6-14.6)
[2019-11-21 09:24] LABS: PHOSPHORUS 4.1 mg/dL (2.5-4.9)
[2019-11-21] MEDS: ASCORBIC ACID 500 MG TABLET PO SCH ×2 (09:43→21:14)
[2019-11-21] MEDS: ZINC SULFATE 220 MG ( 50 ) CAPSULE PO SCH (09:43)
[2019-11-21] MEDS: ASPIRIN 325MG EC TABLET PO SCH (09:43)
[2019-11-21] MEDS: SEVELAMER CARBONATE 800 MG TABLET PO SCH ×3 (09:43→17:59)
[2019-11-21] MEDS: GUAIFENESIN/DM 600MG/30MG ER TAB 12HR PO SCH ×2 (09:43→21:00)
[2019-11-21] MEDS: INSULIN LISPRO 100 UNITS/ML SUBCUT SCH ×4 (09:45→21:00)
[2019-11-21] MEDS ORDERED: LACTULOSE 20G/30ML UDC PO NR (11:00)
[2019-11-21] MEDS ORDERED: VANCOMYCIN 1250MG in DEXTROSE 5% WATER 250ML IV SCH (12:30)
[2019-11-21] MEDS: ACETAMINOPHEN 325MG TABLET PO PRN (14:08)
[2019-11-21] MEDS: ENOXAPARIN 60MG/0.6ML SYR SUBCUT SCH (21:14)
[2019-11-21] MEDS: ATORVASTATIN CALCIUM 40MG TABLET PO SCH (21:14)
[2019-11-21] MEDS: ZOLPIDEM TARTRATE 5MG TABLET PO PRN (21:25)
[2019-11-21] MEDS: FAMOTIDINE 20MG TABLET PO SCH (21:32)
[2019-11-22] VITALS: BP 125/78
[2019-11-22] MEDS: IPRATROPIUM/ALBUTEROL 0.5-3(2.5)MG/3ML NEB HHN SCH (01:59)
[2019-11-22 04:00] VITALS: BP 130/79
[2019-11-22] MEDS: PIPERACILLIN/TAZOBACTAM 2.25 G in DEXTROSE 5% WATER 50 ML IV SCH ×3 (06:24→22:05)
[2019-11-22] MEDS: CARVEDILOL 3.125 MG TABLET PO SCH ×2 (06:24→18:01)
[2019-11-22] MEDS: BLOOD SUGAR DIAGNOSTIC STRIP TEST SCH ×3 (06:25→21:00)
[2019-11-22 06:26] LABS: BASOPHILS % 1.3 % (0.0-2.0); EOSINOPHILS % 7.2 % (0.0-5.0); HEMATOCRIT. 31.4 % (42.0-52.0); LYMPHOCYTES % 12.8 % (20.0-50.0); MEAN CORPUSCULAR HEMOGLOBIN 25.1 pg (28.0-32.0); MEAN CORPUSCULAR VOLUME 78.7 fL (80.0-94.0); MEAN PLATELET VOLUME 8.9 fl (7.4-10.4); NEUTROPHILS % 65.7 % (40.0-76.0); PLATELET 245 x1000/uL (130-400); RED BLOOD CELL COUNT 3.99 mill/uL (4.7-6.1); RED CELL DISTRIBUTION WIDTH 17.9 % (11.6-14.6)
[2019-11-22 06:49] LABS: PHOSPHORUS 4.3 mg/dL (2.5-4.9)
[2019-11-22] MEDS: INSULIN LISPRO 100 UNITS/ML SUBCUT SCH ×4 (07:45→22:09)
[2019-11-22 08:00] VITALS: BP 118/56
[2019-11-22] MEDS: SEVELAMER CARBONATE 800 MG TABLET PO SCH ×3 (08:33→18:01)
[2019-11-22] MEDS: ZINC SULFATE 220 MG ( 50 ) CAPSULE PO SCH (08:33)
[2019-11-22] MEDS: ASCORBIC ACID 500 MG TABLET PO SCH (08:33)
[2019-11-22] MEDS: ASPIRIN 325MG EC TABLET PO SCH (08:33)
[2019-11-22] MEDS: GUAIFENESIN/DM 600MG/30MG ER TAB 12HR PO SCH (08:33)
[2019-11-22] MEDS ORDERED: SODIUM BICARBONATE 4% (2.4MEQ) 5ML VIAL IV ONE (09:05)
[2019-11-22] MEDS ORDERED: HEPARIN 1000 UNITS/ML 10ML ONE (09:05)
[2019-11-22] MEDS ORDERED: LIDOCAINE HCL 1% 20ML VIAL (Pyxis) INJ ONE (09:06)
[2019-11-22 12:00] VITALS: BP 136/41
[2019-11-22 16:00] VITALS: BP 132/53
[2019-11-22] MEDS: ACETYLCYSTEINE 100MG/ML 10% VIAL 4ML INH SCH (20:00)
[2019-11-22] MEDS: ENOXAPARIN 60MG/0.6ML SYR SUBCUT SCH (22:04)
[2019-11-22] MEDS: FAMOTIDINE 20MG TABLET PO SCH (22:04)
[2019-11-22] MEDS: ATORVASTATIN CALCIUM 40MG TABLET PO SCH (22:05)
[2019-11-23 06:16] LABS: PHOSPHORUS 3.4 mg/dL (2.5-4.9)
[2019-11-23] MEDS: PIPERACILLIN/TAZOBACTAM 2.25 G in DEXTROSE 5% WATER 50 ML IV SCH ×3 (06:24→21:10)
[2019-11-23] MEDS: BLOOD SUGAR DIAGNOSTIC STRIP TEST SCH ×4 (06:25→21:10)
[2019-11-23] MEDS: CARVEDILOL 3.125 MG TABLET PO SCH ×2 (06:25→18:24)
[2019-11-23 07:04] LABS: BASOPHILS % 1.3 % (0.0-2.0); EOSINOPHILS % 7.4 % (0.0-5.0); HEMATOCRIT. 30.9 % (42.0-52.0); HEMOGLOBIN. 9.9 g/dL (14.0-18.0); LYMPHOCYTES % 16.4 % (20.0-50.0); MEAN PLATELET VOLUME 9.1 fl (7.4-10.4); MONOCYTES % 14.9 % (2.0-8.0); PLATELET 263 x1000/uL (130-400); RED BLOOD CELL COUNT 3.96 mill/uL (4.7-6.1)
[2019-11-23] MEDS: INSULIN LISPRO 100 UNITS/ML SUBCUT SCH ×4 (07:50→21:00)
[2019-11-23 08:25] VITALS: BP 112/29
[2019-11-23] MEDS: SEVELAMER CARBONATE 800 MG TABLET PO SCH ×3 (08:41→18:22)
[2019-11-23] MEDS: ASPIRIN 325MG EC TABLET PO SCH (08:41)
[2019-11-23] MEDS: IPRATROPIUM/ALBUTEROL 0.5-3(2.5)MG/3ML NEB HHN SCH ×2 (09:00→14:44)
[2019-11-23 11:44] VITALS: BP 122/42
[2019-11-23] MEDS ORDERED: VANCOMYCIN 1250MG in DEXTROSE 5% WATER 250ML IV NR (12:00)
[2019-11-23 16:18] VITALS: BP 122/36
[2019-11-23 20:00] VITALS: BP 122/36
[2019-11-23] MEDS: ENOXAPARIN 60MG/0.6ML SYR SUBCUT SCH (20:00)
[2019-11-23] MEDS: FAMOTIDINE 20MG TABLET PO SCH (21:10)
[2019-11-23] MEDS: ATORVASTATIN CALCIUM 40MG TABLET PO SCH (21:10)
[2019-11-23] MEDS: ZOLPIDEM TARTRATE 5MG TABLET PO PRN (21:15)
[2019-11-24] VITALS: BP 119/45
[2019-11-24] MEDS: IPRATROPIUM/ALBUTEROL 0.5-3(2.5)MG/3ML NEB HHN SCH ×4 (00:15→17:38)
[2019-11-24] MEDS: ACETYLCYSTEINE 100MG/ML 10% VIAL 4ML INH SCH ×4 (00:15→17:38)
[2019-11-24 04:00] VITALS: BP 112/42
[2019-11-24] MEDS: PIPERACILLIN/TAZOBACTAM 2.25 G in DEXTROSE 5% WATER 50 ML IV SCH ×3 (06:11→21:32)
[2019-11-24] MEDS: CARVEDILOL 3.125 MG TABLET PO SCH ×2 (06:11→18:00)
[2019-11-24] MEDS: BLOOD SUGAR DIAGNOSTIC STRIP TEST SCH ×4 (06:58→20:31)
[2019-11-24 07:33] LABS: BASOPHILS % 1.8 % (0.0-2.0); EOSINOPHILS % 7.3 % (0.0-5.0); HEMATOCRIT. 29.3 % (42.0-52.0); HEMOGLOBIN. 9.4 g/dL (14.0-18.0); LYMPHOCYTES % 17.6 % (20.0-50.0); MEAN CORPUSCULAR HEMOGLOBIN 25.2 pg (28.0-32.0); MEAN CORPUSCULAR VOLUME 78.7 fL (80.0-94.0); MEAN PLATELET VOLUME 8.3 fl (7.4-10.4); MONOCYTES % 14.6 % (2.0-8.0); NEUTROPHILS % 58.7 % (40.0-76.0); PLATELET 267 x1000/uL (130-400); RED BLOOD CELL COUNT 3.72 mill/uL (4.7-6.1)
[2019-11-24] MEDS: INSULIN LISPRO 100 UNITS/ML SUBCUT SCH ×4 (07:50→20:31)
[2019-11-24 08:00] VITALS: BP 124/35
[2019-11-24] MEDS: SEVELAMER CARBONATE 800 MG TABLET PO SCH ×3 (09:47→17:50)
[2019-11-24] MEDS: ASPIRIN 325MG EC TABLET PO SCH (09:47)
[2019-11-24 12:00] VITALS: BP 118/35
[2019-11-24] MEDS: ACETAMINOPHEN 325MG TABLET PO PRN (13:23)
[2019-11-24 16:00] VITALS: BP 132/25
[2019-11-24 20:00] VITALS: BP 131/75
[2019-11-24] MEDS: ENOXAPARIN 60MG/0.6ML SYR SUBCUT SCH (20:00)
[2019-11-24] MEDS: FAMOTIDINE 20MG TABLET PO SCH (20:28)
[2019-11-24] MEDS: ATORVASTATIN CALCIUM 40MG TABLET PO SCH (20:28)
[2019-11-24] MEDS: EPOETIN ALFA 10000UNITS/ML VIAL SUBCUT SCH (21:48)
[2019-11-25] VITALS: BP 135/90
[2019-11-25] MEDS: ACETAMINOPHEN 325MG TABLET PO PRN (02:55)
[2019-11-25 04:00] VITALS: BP 121/44
[2019-11-25] MEDS: CARVEDILOL 3.125 MG TABLET PO SCH ×2 (05:04→17:32)
[2019-11-25] MEDS: PIPERACILLIN/TAZOBACTAM 2.25 G in DEXTROSE 5% WATER 50 ML IV SCH ×3 (05:04→22:49)
[2019-11-25 06:10] LABS: HEMOGLOBIN. 9.8 g/dL (14.0-18.0); MEAN CORPUSCULAR HEMOGLOBIN 25.4 pg (28.0-32.0); MEAN CORPUSCULAR VOLUME 80.1 fL (80.0-94.0); MEAN PLATELET VOLUME 8.2 fl (7.4-10.4); PLATELET 261 x1000/uL (130-400); RED BLOOD CELL COUNT 3.87 mill/uL (4.7-6.1); RED CELL DISTRIBUTION WIDTH 18.5 % (11.6-14.6)
[2019-11-25 06:52] LABS: PHOSPHORUS 4.6 mg/dL (2.5-4.9)
[2019-11-25] MEDS: BLOOD SUGAR DIAGNOSTIC STRIP TEST SCH ×4 (07:20→21:00)
[2019-11-25] MEDS: INSULIN LISPRO 100 UNITS/ML SUBCUT SCH ×4 (07:50→22:48)
[2019-11-25 08:00] VITALS: BP 116/59
[2019-11-25] MEDS: IPRATROPIUM/ALBUTEROL 0.5-3(2.5)MG/3ML NEB HHN SCH ×3 (08:58→21:59)
[2019-11-25] MEDS: ACETYLCYSTEINE 100MG/ML 10% VIAL 4ML INH SCH ×3 (08:58→22:00)
[2019-11-25] MEDS: SEVELAMER CARBONATE 800 MG TABLET PO SCH ×3 (09:02→17:24)
[2019-11-25] MEDS: ASPIRIN 325MG EC TABLET PO SCH (09:02)
[2019-11-25 12:00] VITALS: BP 138/89
[2019-11-25 13:45] LABS: ATYPICAL LYMPHOCYTES 1
[2019-11-25 13:46] LABS: PLATELET ESTIMATE NORMAL
[2019-11-25 16:00] VITALS: BP 127/30
[2019-11-25] MEDS ORDERED: ENOXAPARIN 80MG/0.8ML SYR SUBCUT SCH ×2 (16:37→20:00)
[2019-11-25 20:00] VITALS: BP 142/42
[2019-11-25] MEDS: ATORVASTATIN CALCIUM 40MG TABLET PO SCH (22:41)
[2019-11-25] MEDS: FAMOTIDINE 20MG TABLET PO SCH (22:48)
[2019-11-26] VITALS: BP 131/40
[2019-11-26 04:00] VITALS: BP 122/41
[2019-11-26] MEDS: CARVEDILOL 3.125 MG TABLET PO SCH ×2 (06:58→17:05)
[2019-11-26] MEDS: BLOOD SUGAR DIAGNOSTIC STRIP TEST SCH ×4 (07:20→20:47)
[2019-11-26 08:00] VITALS: BP 128/71
[2019-11-26] MEDS: ACETYLCYSTEINE 100MG/ML 10% VIAL 4ML INH SCH ×3 (08:55→22:00)
[2019-11-26] MEDS: IPRATROPIUM/ALBUTEROL 0.5-3(2.5)MG/3ML NEB HHN SCH ×3 (08:55→22:00)
[2019-11-26] MEDS: INSULIN LISPRO 100 UNITS/ML SUBCUT SCH ×4 (10:39→20:47)
[2019-11-26] MEDS: SEVELAMER CARBONATE 800 MG TABLET PO SCH ×3 (10:39→17:50)
[2019-11-26] MEDS: ASPIRIN 325MG EC TABLET PO SCH (10:39)
[2019-11-26] MEDS: ACETAMINOPHEN 325MG TABLET PO PRN ×2 (15:19→20:43)
[2019-11-26 16:00] VITALS: BP 130/40
[2019-11-26 20:00] VITALS: BP 109/43
[2019-11-26] MEDS: FAMOTIDINE 20MG TABLET PO SCH (20:42)
[2019-11-26] MEDS: ATORVASTATIN CALCIUM 40MG TABLET PO SCH (20:42)
[2019-11-27] VITALS (11 sets, daily range): BP systolic 123–158; BP diastolic 34–107
[2019-11-27] MEDS: ACETAMINOPHEN 325MG TABLET PO PRN ×3 (04:27→17:42)
[2019-11-27] MEDS: CARVEDILOL 3.125 MG TABLET PO SCH ×2 (06:05→17:41)
[2019-11-27] MEDS: BLOOD SUGAR DIAGNOSTIC STRIP TEST SCH ×3 (06:29→17:20)
[2019-11-27 06:50] LABS: BASOPHILS % 2.2 % (0.0-2.0); EOSINOPHILS % 4.4 % (0.0-5.0); HEMATOCRIT. 31.1 % (42.0-52.0); HEMOGLOBIN. 9.7 g/dL (14.0-18.0); LYMPHOCYTES % 20.8 % (20.0-50.0); MEAN CORPUSCULAR HEMOGLOBIN 24.9 pg (28.0-32.0); MEAN CORPUSCULAR VOLUME 79.6 fL (80.0-94.0); MEAN PLATELET VOLUME 8.1 fl (7.4-10.4); MONOCYTES % 13.8 % (2.0-8.0); NEUTROPHILS % 58.8 % (40.0-76.0); PLATELET 321 x1000/uL (130-400); RED BLOOD CELL COUNT 3.91 mill/uL (4.7-6.1); RED CELL DISTRIBUTION WIDTH 18.5 % (11.6-14.6)
[2019-11-27] MEDS ORDERED: HEPARIN 1000 UNITS/ML 10ML ONE (07:23)
[2019-11-27] MEDS ORDERED: SODIUM BICARBONATE 4% (2.4MEQ) 5ML VIAL IV ONE (07:23)
[2019-11-27] MEDS ORDERED: LIDOCAINE HCL 1% 20ML VIAL (Pyxis) INJ ONE (07:23)
[2019-11-27] MEDS ORDERED: FENTANYL CITRATE/PF 50MCG/ML 2ML VIAL ONE (07:45)
[2019-11-27] MEDS: INSULIN LISPRO 100 UNITS/ML SUBCUT SCH ×3 (07:50→17:50)
[2019-11-27 08:11] LABS: PHOSPHORUS 5.4 mg/dL (2.5-4.9)
[2019-11-27] MEDS ORDERED: FENTANYL CITRATE/PF 50MCG/ML 2ML VIAL IV ONE (08:30)
[2019-11-27] MEDS: ASPIRIN 325MG EC TABLET PO SCH (09:38)
[2019-11-27] MEDS: SEVELAMER CARBONATE 800 MG TABLET PO SCH ×3 (09:38→17:40)
[2019-11-27] MEDS: IPRATROPIUM/ALBUTEROL 0.5-3(2.5)MG/3ML NEB HHN SCH ×2 (10:25→17:00)
[2019-11-27] MEDS: ACETYLCYSTEINE 100MG/ML 10% VIAL 4ML INH SCH (10:25)
[2019-11-27] MEDS ORDERED: EPOETIN ALFA 4000UNITS/ML VIAL SUBCUT SCH (21:00)
[2019-11-28] MEDS ORDERED: VANCOMYCIN HCL 1 GM/VIAL IV SCH (09:00)
[2019-11-28] MEDS ORDERED: VANCOMYCIN 1 G PREMIX 200 ML IV SCH (09:00)
== END 2019-11-27 17:48 | DRG 720 ==
LOC: ER 14:12 → SUPCPDRO 15:24 → EEVIPCON 18:19 → 7WST 18:19 → EDBEDREQSVC 18:22 → EDBEDREQ 18:22 → ENRESERV 19:49 → 6WST 11-21 18:43 → 6EST 11-26 15:08
PROVIDERS: ADMIT Internal Medicine; ATTEND Internal Medicine
PROC: 0JPT3XZ Removal of Tunneled Vascular Access Device from Trunk Subcutaneous Tissue and Fascia, Percutaneous Approach (ICD-10-PCS; principal; 2019-11-22)
PROC: 02H633Z Insertion of Infusion Device into Right Atrium, Percutaneous Approach (ICD-10-PCS; 2019-11-22)
PROC: B5181ZA Fluoroscopy of Superior Vena Cava using Low Osmolar Contrast, Guidance (ICD-10-PCS; 2019-11-22)
PROC: 5A1D70Z Performance of Urinary Filtration, Intermittent, Less than 6 Hours Per Day (ICD-10-PCS; 2019-11-22)
PROC: 5A1D70Z Performance of Urinary Filtration, Intermittent, Less than 6 Hours Per Day (ICD-10-PCS; 2019-11-26)
PROC: 0JH63XZ Insertion of Tunneled Vascular Access Device into Chest Subcutaneous Tissue and Fascia, Percutaneous Approach (ICD-10-PCS; 2019-11-27)
PROC: 02H633Z Insertion of Infusion Device into Right Atrium, Percutaneous Approach (ICD-10-PCS; 2019-11-27)
PROC: B5181ZA Fluoroscopy of Superior Vena Cava using Low Osmolar Contrast, Guidance (ICD-10-PCS; 2019-11-27)
PROC: 02PYX3Z Removal of Infusion Device from Great Vessel, External Approach (ICD-10-PCS; 2019-11-27)
DX: A41.02 Sepsis due to Methicillin resistant Staphylococcus aureus (principal); J96.01 Acute respiratory failure with hypoxia; I21.4 Non-ST elevation (NSTEMI) myocardial infarction; I13.2 Hypertensive heart and chronic kidney disease with heart failure and with stage 5 chronic kidney disease, or end stage renal disease; G92 Toxic encephalopathy; I96 Gangrene, not elsewhere classified; I50.22 Chronic systolic (congestive) heart failure; E44.1 Mild protein-calorie malnutrition; I08.1 Rheumatic disorders of both mitral and tricuspid valves; R65.20 Severe sepsis without septic shock; N18.6 End stage renal disease; N39.0 Urinary tract infection, site not specified; J44.9 Chronic obstructive pulmonary disease, unspecified; I25.10 Atherosclerotic heart disease of native coronary artery without angina pectoris; E11.52 Type 2 diabetes mellitus with diabetic peripheral angiopathy with gangrene; E11.22 Type 2 diabetes mellitus with diabetic chronic kidney disease; D63.8 Anemia in other chronic diseases classified elsewhere; I25.5 Ischemic cardiomyopathy; E78.00 Pure hypercholesterolemia, unspecified; E78.5 Hyperlipidemia, unspecified; K59.00 Constipation, unspecified; Z66 Do not resuscitate; Z20.828 Contact with and (suspected) exposure to other viral communicable diseases; E87.2 Acidosis; A41.52 Sepsis due to Pseudomonas; E87.5 Hyperkalemia; Z99.2 Dependence on renal dialysis; Z79.4 Long term (current) use of insulin; Z95.1 Presence of aortocoronary bypass graft; Z79.82 Long term (current) use of aspirin; Z79.899 Other long term (current) drug therapy; Z88.0 Allergy status to penicillin; Z68.20 Body mass index [BMI] 20.0-20.9, adult; I25.2 Old myocardial infarction; Z87.891 Personal history of nicotine dependence; Z82.49 Family history of ischemic heart disease and other diseases of the circulatory system; Z91.15 Patient's noncompliance with renal dialysis; Z95.5 Presence of coronary angioplasty implant and graft; Z83.3 Family history of diabetes mellitus; Z86.79 Personal history of other diseases of the circulatory system; Z86.14 Personal history of Methicillin resistant Staphylococcus aureus infection
CPT/HCPCS: 36415; 36558; 36589; 71045; 76937; 77001; 80048; 80053; 80202; 81003; 82550; 82553; 82962; 83036; 83605; 83735; 83880; 84100; 84145; 84484; 85025; 85651; 86140; 87077; 87186; 87635; 87804; 93005; 93306; 96365; 99152; 99153; 99285; C1752; J0360; J0885; J1200; J1644; J1650; J1815; J1956; J2543; J3010; J3370; J3490; J7030; J7060; J7608; G0500

== ENCOUNTER 2019-12-27 12:08 | Inpatient (IN) | payer MEDICAID ==
[~2019-12-27] VITALS: Ht 167.6 cm; Wt 68.5 kg
[2019-12-27] MEDS ORDERED: ACETAMINOPHEN 650MG SUPP PR STA (12:53)
[2019-12-27] MEDS ORDERED: PIPERACILLIN/TAZ 3.375G PREMIX 50 ML IV ONE (13:00)
[2019-12-27] MEDS ORDERED: VANCOMYCIN 1 G PREMIX 200 ML IV ONE (13:00)
[2019-12-27] MEDS ORDERED: SODIUM CHLORIDE 0.9% 500 ML IV ONE (13:30)
[2019-12-27 14:07] LABS: HEMATOCRIT. 32.1 % (42.0-52.0); HEMOGLOBIN. 9.9 g/dL (14.0-18.0); MEAN CORPUSCULAR HEMOGLOBIN 23.6 pg (28.0-32.0); MEAN CORPUSCULAR VOLUME 76.4 fL (80.0-94.0); MEAN PLATELET VOLUME 9.8 fl (7.4-10.4); PLATELET 181 x1000/uL (130-400); RED CELL DISTRIBUTION WIDTH 18.3 % (11.6-14.6)
[2019-12-27 14:10] LABS: CHLORIDE 100 mEq/L (98-107); INR 1.5; PROTHROMBIN TIME 15.9 sec (9.6-11.0)
[2019-12-27 14:33] LABS: PLATELET ESTIMATE NORMAL
[2019-12-27] MEDS ORDERED: SODIUM CHLORIDE 0.9% 1,000 ML IV ONE (15:30)
[2019-12-27] MEDS ORDERED: CLONIDINE 0.1MG TABLET PO PRN (17:00)
[2019-12-27] MEDS ORDERED: PHYTONADIONE 10MG/ML AMP SUBCUT ONE (17:00)
[2019-12-27] MEDS ORDERED: PANTOPRAZOLE SODIUM 40 MG/VIAL IV SCH ×3 (17:00→17:15)
[2019-12-27] MEDS ORDERED: ONDANSETRON HCL 4MG/2ML INJ IV PRN (17:00)
[2019-12-27] MEDS ORDERED: ACETAMINOPHEN 650MG SUPP PR PRN (17:00)
[2019-12-27] MEDS: PANTOPRAZOLE SODIUM 40 MG/VIAL IV SCH (17:30)
[2019-12-27] MEDS ORDERED: HYDROMORPHONE HCL/PF 2MG/ML CPJ IV PRN (18:00)
[2019-12-27 18:27] LABS: TOTAL IRON BINDING CAPACITY 143 ug/dL (250-450)
[2019-12-27] MEDS ORDERED: DEXTROSE 50% WATER 50ML SYRINGE IV PRN (18:45)
[2019-12-27 18:53] LABS: VITAMIN B12 SERUM >2000 pg/mL pg/mL (211-911)
[2019-12-27 18:55] LABS: FOLIC ACID (FOLATE) SERUM > 20.00 ng/mL (>5.38)
[2019-12-27 19:18] LABS: FERRITIN 2322 ng/mL (22-322)
[2019-12-27 20:49] LABS: HEMATOCRIT 31.6 % (42.0-52.0); HEMOGLOBIN 9.5 g/dL (14.0-18.0)
[2019-12-27] MEDS: BLOOD SUGAR DIAGNOSTIC STRIP TEST SCH (21:01)
[2019-12-27] MEDS: INSULIN LISPRO 100 UNITS/ML SUBCUT SCH (21:45)
[2019-12-27 23:50] LABS: CLARITY URINE TURBID (CLEAR); COLOR URINE DARK YELLOW (YELLOW); KETONES URINE TRACE (NEGATIVE); LEUKOCYTE ESTERASE URINE 3+ (NEGATIVE); NITRITE URINE NEGATIVE (NEGATIVE); OCCULT BLOOD URINE 3+ (NEGATIVE); PROTEIN URINE 3+ (NEGATIVE); UROBILINOGEN URINE 0.2 E.U./dL (0.2-1.0)
[2019-12-28 00:43] LABS: HEMATOCRIT 31.1 % (42.0-52.0); HEMOGLOBIN 9.5 g/dL (14.0-18.0)
[2019-12-28] MEDS ORDERED: SODIUM CHLORIDE 0.9% 250 ML IV SCH (05:45)
[2019-12-28 06:18] LABS: HEMATOCRIT. 32.6 % (42.0-52.0); HEMOGLOBIN. 9.9 g/dL (14.0-18.0); MEAN CORPUSCULAR HEMOGLOBIN 23.7 pg (28.0-32.0); MEAN CORPUSCULAR VOLUME 77.8 fL (80.0-94.0); MEAN PLATELET VOLUME 9.6 fl (7.4-10.4); PLATELET 165 x1000/uL (130-400); RED BLOOD CELL COUNT 4.19 mill/uL (4.7-6.1); RED CELL DISTRIBUTION WIDTH 18.4 % (11.6-14.6)
[2019-12-28 06:25] LABS: CHLORIDE 100 mEq/L (98-107)
[2019-12-28 07:17] LABS: PLATELET ESTIMATE NORMAL
[2019-12-28] MEDS: BLOOD SUGAR DIAGNOSTIC STRIP TEST SCH ×4 (08:11→21:36)
[2019-12-28] MEDS: INSULIN LISPRO 100 UNITS/ML SUBCUT SCH ×4 (08:16→21:36)
[2019-12-28] MEDS ORDERED: SODIUM BICARBONATE 8.4% 1 MEQ/ML 50ML SYR IV ONE (08:30)
[2019-12-28] MEDS ORDERED: SODIUM POLYSTYRENE SULFONATE 15 G/60 ML BOT PO ONE (08:30)
[2019-12-28] MEDS: PANTOPRAZOLE SODIUM 40 MG/VIAL IV SCH ×2 (08:54→17:16)
[2019-12-28] MEDS: CITRIC ACID/SODIUM CITRATE SOLN 30ML UDC PO SCH ×3 (09:25→17:17)
[2019-12-28 09:33] LABS: BG BASE EXCESS -5.8 mmol/L (-2.0-2.0); BG CARBOXYHEMOGLOBIN 0.2 % (0.5-1.5); BG DEOXYHEMOGLOBIN 9.7 % (0.0-5.0); BG FRACTION INSPIRED OXYGEN 21; BG HCO3 ACT 17.9 mmol/L (22.0-26.0); BG METHEMOGLOBIN 0.3 % (0.0-1.5); BG OXYGEN SATURATION 90.3 % (92.0-98.5); BG OXYHEMOGLOBIN 89.8 % (94.0-97.0); BG PCO2 29.1 mmHg (35.0-45.0); BG PH 7.407 (7.350-7.450); BG PO2 59.8 mmHg (75.0-100.0); BG SAMPLE SITE RIGHT BRACHIAL; BG TOTAL HEMOGLOBIN 10.3 g/dL (12.0-18.0); BG VENT MODE ROOM AIR
[2019-12-28] MEDS ORDERED: LEVOFLOXACIN 500MG PREMIX 100 ML IV ONE (13:30)
[2019-12-28 13:55] VITALS: BP 123/58
[2019-12-28 14:00] VITALS: BP 135/58
[2019-12-28] MEDS ORDERED: LEVOFLOXACIN 500MG PREMIX 100 ML IV SCH (15:00)
[2019-12-28 16:00] VITALS: BP 119/64
[2019-12-28] MEDS ORDERED: FAMO20TA8 PO (16:46)
[2019-12-28] MEDS ORDERED: GABA-529 PO (16:47)
[2019-12-28] MEDS ORDERED: NORT25CA PO (16:52)
[2019-12-28] MEDS ORDERED: SEVE800T8 PO (16:54)
[2019-12-28] MEDS ORDERED: VANCOMYCIN 500 MG PREMIX 100 ML IV SCH (18:00)
[2019-12-28 20:00] VITALS: BP 109/55
[2019-12-29 01:38] VITALS: BP 107/51
[2019-12-29 04:00] VITALS: BP 113/49
[2019-12-29] MEDS: BLOOD SUGAR DIAGNOSTIC STRIP TEST SCH ×4 (05:27→20:57)
[2019-12-29 07:30] LABS: HEMATOCRIT. 35.1 % (42.0-52.0); HEMOGLOBIN. 11.3 g/dL (14.0-18.0); MEAN CORPUSCULAR HEMOGLOBIN 23.9 pg (28.0-32.0); MEAN CORPUSCULAR VOLUME 74.5 fL (80.0-94.0); MEAN PLATELET VOLUME 9.4 fl (7.4-10.4); PLATELET 190 x1000/uL (130-400); RED BLOOD CELL COUNT 4.72 mill/uL (4.7-6.1); RED CELL DISTRIBUTION WIDTH 18.4 % (11.6-14.6)
[2019-12-29 08:00] VITALS: BP 128/76
[2019-12-29] MEDS: CITRIC ACID/SODIUM CITRATE SOLN 30ML UDC PO SCH ×3 (08:00→17:50)
[2019-12-29] MEDS: PANTOPRAZOLE SODIUM 40 MG/VIAL IV SCH ×2 (08:00→17:50)
[2019-12-29] MEDS: INSULIN LISPRO 100 UNITS/ML SUBCUT SCH ×4 (08:01→21:49)
[2019-12-29 08:02] LABS: PHOSPHORUS 4.8 mg/dL (2.5-4.9)
[2019-12-29 11:07] LABS: PLATELET ESTIMATE NORMAL
[2019-12-29 12:00] VITALS: BP 120/76
[2019-12-29] MEDS: ENOXAPARIN 60MG/0.6ML SYR SUBCUT SCH (12:43)
[2019-12-29] MEDS: ASPIRIN 81MG EC TABLET PO SCH (12:43)
[2019-12-29 16:00] VITALS: BP 158/94
[2019-12-29 20:00] VITALS: BP 128/76
[2019-12-30] VITALS (7 sets, daily range): BP systolic 101–129; BP diastolic 43–81
[2019-12-30] MEDS: BLOOD SUGAR DIAGNOSTIC STRIP TEST SCH ×4 (06:36→21:00)
[2019-12-30] MEDS: INSULIN LISPRO 100 UNITS/ML SUBCUT SCH ×4 (08:18→22:30)
[2019-12-30] MEDS: ASPIRIN 81MG EC TABLET PO SCH (09:01)
[2019-12-30] MEDS: PANTOPRAZOLE SODIUM 40 MG/VIAL IV SCH ×2 (09:01→17:04)
[2019-12-30] MEDS: ENOXAPARIN 60MG/0.6ML SYR SUBCUT SCH (09:07)
[2019-12-30] MEDS ORDERED: LEVOFLOXACIN 250MG PREMIX 50 ML IV SCH (11:00)
[2019-12-30 12:10] LABS: HEMATOCRIT. 34.6 % (42.0-52.0); HEMOGLOBIN. 10.6 g/dL (14.0-18.0); MEAN CORPUSCULAR HEMOGLOBIN 23.4 pg (28.0-32.0); MEAN CORPUSCULAR VOLUME 76.1 fL (80.0-94.0); MEAN PLATELET VOLUME 8.9 fl (7.4-10.4); PLATELET 199 x1000/uL (130-400); RED BLOOD CELL COUNT 4.54 mill/uL (4.7-6.1); RED CELL DISTRIBUTION WIDTH 18.5 % (11.6-14.6)
[2019-12-30 12:24] LABS: PHOSPHORUS 4.3 mg/dL (2.5-4.9)
[2019-12-30 14:38] LABS: PLATELET ESTIMATE NORMAL
[2019-12-30] MEDS ORDERED: LIDOCAINE HCL 1% 20ML VIAL (Pyxis) INJ ONE (14:51)
[2019-12-30] MEDS ORDERED: SODIUM BICARBONATE 4% (2.4MEQ) 5ML VIAL IV ONE (14:51)
[2019-12-30] MEDS ORDERED: VANCOMYCIN 1 G PREMIX 200 ML IV NR (17:00)
[2019-12-31] VITALS (7 sets, daily range): BP systolic 126–136; BP diastolic 70–82
[2019-12-31] MEDS: BLOOD SUGAR DIAGNOSTIC STRIP TEST SCH ×4 (07:20→21:30)
[2019-12-31] MEDS: PANTOPRAZOLE SODIUM 40 MG/VIAL IV SCH ×2 (08:33→16:52)
[2019-12-31] MEDS: ASPIRIN 81MG EC TABLET PO SCH (08:33)
[2019-12-31] MEDS: INSULIN LISPRO 100 UNITS/ML SUBCUT SCH ×4 (08:34→21:00)
[2019-12-31 10:44] LABS: EOSINOPHILS % 0.8 % (0.0-5.0); HEMATOCRIT. 33.9 % (42.0-52.0); HEMOGLOBIN. 10.5 g/dL (14.0-18.0); LYMPHOCYTES % 20.9 % (20.0-50.0); MEAN CORPUSCULAR HEMOGLOBIN 23.7 pg (28.0-32.0); MEAN CORPUSCULAR VOLUME 76.1 fL (80.0-94.0); MEAN PLATELET VOLUME 8.4 fl (7.4-10.4); MONOCYTES % 12.7 % (2.0-8.0); NEUTROPHILS % 63.6 % (40.0-76.0); PLATELET 208 x1000/uL (130-400); RED BLOOD CELL COUNT 4.46 mill/uL (4.7-6.1)
[2019-12-31 11:34] LABS: PHOSPHORUS 4.7 mg/dL (2.5-4.9)
[2019-12-31] MEDS: LINAGLIPTIN 5MG TABLET PO SCH (13:10)
[2020-01-01 00:41] VITALS: BP 135/81
[2020-01-01 04:00] VITALS: BP 115/74
[2020-01-01] MEDS: BLOOD SUGAR DIAGNOSTIC STRIP TEST SCH ×4 (06:52→21:00)
[2020-01-01 06:56] LABS: BASOPHILS % 1.1 % (0.0-2.0); EOSINOPHILS % 1.8 % (0.0-5.0); HEMATOCRIT. 32.9 % (42.0-52.0); HEMOGLOBIN. 10.3 g/dL (14.0-18.0); LYMPHOCYTES % 18.5 % (20.0-50.0); MEAN CORPUSCULAR HEMOGLOBIN 23.3 pg (28.0-32.0); MEAN CORPUSCULAR VOLUME 74.4 fL (80.0-94.0); MONOCYTES % 13.3 % (2.0-8.0); NEUTROPHILS % 65.3 % (40.0-76.0); PLATELET 219 x1000/uL (130-400); RED BLOOD CELL COUNT 4.43 mill/uL (4.7-6.1); RED CELL DISTRIBUTION WIDTH 18.1 % (11.6-14.6)
[2020-01-01 07:30] LABS: PHOSPHORUS 5.8 mg/dL (2.5-4.9)
[2020-01-01 08:00] VITALS: BP 141/68
[2020-01-01] MEDS: ASPIRIN 81MG EC TABLET PO SCH (08:31)
[2020-01-01] MEDS: PANTOPRAZOLE SODIUM 40 MG/VIAL IV SCH ×2 (08:31→18:18)
[2020-01-01] MEDS: LINAGLIPTIN 5MG TABLET PO SCH (08:31)
[2020-01-01] MEDS: INSULIN LISPRO 100 UNITS/ML SUBCUT SCH ×4 (08:32→21:00)
[2020-01-01] MEDS ORDERED: REGADENOSON 0.4 MG/5 ML IV ONE (10:30)
[2020-01-01] MEDS ORDERED: HEPARIN 1000 UNITS/ML 10ML ONE (11:07)
[2020-01-01] MEDS ORDERED: LIDOCAINE HCL 1% 20ML VIAL (Pyxis) INJ ONE (11:07)
[2020-01-01 12:15] VITALS: BP 98/69
[2020-01-01 16:00] VITALS: BP 100/68
[2020-01-01 20:00] VITALS: BP 123/79
[2020-01-02] VITALS: BP 132/84
[2020-01-02 04:00] VITALS: BP 112/82
[2020-01-02 08:00] VITALS: BP 136/69
[2020-01-02] MEDS: BLOOD SUGAR DIAGNOSTIC STRIP TEST SCH ×4 (08:06→20:38)
[2020-01-02] MEDS: INSULIN LISPRO 100 UNITS/ML SUBCUT SCH ×4 (08:14→21:00)
[2020-01-02] MEDS: PANTOPRAZOLE SODIUM 40 MG/VIAL IV SCH ×2 (10:03→18:00)
[2020-01-02] MEDS ORDERED: REGADENOSON 0.4 MG/5 ML IV ONE (11:37)
[2020-01-02] MEDS: ASPIRIN 81MG EC TABLET PO SCH (12:56)
[2020-01-02] MEDS: LINAGLIPTIN 5MG TABLET PO SCH (12:56)
[2020-01-02 16:00] VITALS: BP 112/86
[2020-01-02 20:39] VITALS: BP 121/66
[2020-01-02] MEDS: CARVEDILOL 3.125 MG TABLET PO SCH (20:59)
[2020-01-03] VITALS: BP 127/52
[2020-01-03 04:00] VITALS: BP 129/67
[2020-01-03] MEDS: BLOOD SUGAR DIAGNOSTIC STRIP TEST SCH ×4 (06:20→21:00)
[2020-01-03 06:31] LABS: BASOPHILS % 0.9 % (0.0-2.0); HEMATOCRIT. 32.1 % (42.0-52.0); LYMPHOCYTES % 25.2 % (20.0-50.0); MEAN CORPUSCULAR HEMOGLOBIN 23.4 pg (28.0-32.0); MEAN CORPUSCULAR VOLUME 75.3 fL (80.0-94.0); MONOCYTES % 13.2 % (2.0-8.0); NEUTROPHILS % 58.7 % (40.0-76.0); PLATELET 229 x1000/uL (130-400); RED BLOOD CELL COUNT 4.27 mill/uL (4.7-6.1); RED CELL DISTRIBUTION WIDTH 18.4 % (11.6-14.6)
[2020-01-03 06:40] LABS: PHOSPHORUS 4.9 mg/dL (2.5-4.9)
[2020-01-03 08:00] VITALS: BP 122/75
[2020-01-03] MEDS: PANTOPRAZOLE SODIUM 40 MG/VIAL IV SCH ×2 (08:12→18:41)
[2020-01-03] MEDS: ASPIRIN 81MG EC TABLET PO SCH (08:12)
[2020-01-03] MEDS: CARVEDILOL 3.125 MG TABLET PO SCH ×2 (08:14→22:19)
[2020-01-03] MEDS: LINAGLIPTIN 5MG TABLET PO SCH (08:15)
[2020-01-03] MEDS: INSULIN LISPRO 100 UNITS/ML SUBCUT SCH ×4 (08:16→22:22)
[2020-01-03 12:00] VITALS: BP_SYST 118; BP_SYST 120; BP_DIAS 68; BP_DIAS 87
[2020-01-03 16:00] VITALS: BP 122/65
[2020-01-03 20:37] VITALS: BP 146/71
[2020-01-04] VITALS (7 sets, daily range): BP systolic 112–147; BP diastolic 62–87
[2020-01-04 06:44] LABS: PHOSPHORUS 5.4 mg/dL (2.5-4.9)
[2020-01-04 06:48] LABS: BASOPHILS % 1.2 % (0.0-2.0); EOSINOPHILS % 2.9 % (0.0-5.0); HEMATOCRIT. 31.6 % (42.0-52.0); HEMOGLOBIN. 9.9 g/dL (14.0-18.0); LYMPHOCYTES % 23.9 % (20.0-50.0); MEAN CORPUSCULAR HEMOGLOBIN 23.4 pg (28.0-32.0); MEAN CORPUSCULAR VOLUME 74.7 fL (80.0-94.0); MEAN PLATELET VOLUME 8.8 fl (7.4-10.4); PLATELET 225 x1000/uL (130-400); RED BLOOD CELL COUNT 4.23 mill/uL (4.7-6.1); RED CELL DISTRIBUTION WIDTH 18.4 % (11.6-14.6)
[2020-01-04] MEDS: BLOOD SUGAR DIAGNOSTIC STRIP TEST SCH ×4 (08:08→21:43)
[2020-01-04] MEDS: PANTOPRAZOLE SODIUM 40 MG/VIAL IV SCH (08:29)
[2020-01-04] MEDS: ASPIRIN 81MG EC TABLET PO SCH (08:29)
[2020-01-04] MEDS: CARVEDILOL 3.125 MG TABLET PO SCH (08:29)
[2020-01-04] MEDS: LINAGLIPTIN 5MG TABLET PO SCH (08:30)
[2020-01-04] MEDS: INSULIN LISPRO 100 UNITS/ML SUBCUT SCH ×4 (08:32→21:58)
[2020-01-04] MEDS ORDERED: VANCOMYCIN 5MG/ML SYR IV PRN (12:00)
[2020-01-04] MEDS ORDERED: VANCOMYCIN 750 MG PREMIX 150 ML IV NR (15:00)
[2020-01-04 16:01] LABS: INR 1.3; PROTHROMBIN TIME 14.1 sec (9.6-11.0)
[2020-01-04] MEDS ORDERED: WARFARIN SODIUM 3MG TABLET PO SCH (18:00)
[2020-01-04] MEDS: CARVEDILOL 6.25 MG TABLET PO SCH (21:57)
[2020-01-05 00:06] VITALS: BP 128/80
[2020-01-05 04:52] VITALS: BP 117/66
[2020-01-05 06:34] LABS: PHOSPHORUS 5.2 mg/dL (2.5-4.9)
[2020-01-05 06:46] LABS: INR 1.3; PROTHROMBIN TIME 13.7 sec (9.6-11.0)
[2020-01-05] MEDS: BLOOD SUGAR DIAGNOSTIC STRIP TEST SCH ×4 (07:50→21:50)
[2020-01-05 08:00] VITALS: BP 126/87
[2020-01-05] MEDS: INSULIN LISPRO 100 UNITS/ML SUBCUT SCH ×4 (08:20→21:59)
[2020-01-05] MEDS: LINAGLIPTIN 5MG TABLET PO SCH (09:39)
[2020-01-05] MEDS: APIXABAN 2.5 MG TABLET PO SCH ×2 (09:39→18:10)
[2020-01-05] MEDS: PANTOPRAZOLE SODIUM 40 MG/VIAL IV SCH (09:40)
[2020-01-05] MEDS: CARVEDILOL 6.25 MG TABLET PO SCH ×2 (09:40→21:58)
[2020-01-05 10:49] LABS: BASOPHILS % 0.7 % (0.0-2.0); EOSINOPHILS % 1.7 % (0.0-5.0); HEMATOCRIT. 33.2 % (42.0-52.0); HEMOGLOBIN. 10.3 g/dL (14.0-18.0); LYMPHOCYTES % 24.2 % (20.0-50.0); MEAN CORPUSCULAR HEMOGLOBIN 23.3 pg (28.0-32.0); MEAN CORPUSCULAR VOLUME 75.1 fL (80.0-94.0); MEAN PLATELET VOLUME 9.1 fl (7.4-10.4); MONOCYTES % 9.5 % (2.0-8.0); NEUTROPHILS % 63.9 % (40.0-76.0); PLATELET 234 x1000/uL (130-400); RED BLOOD CELL COUNT 4.43 mill/uL (4.7-6.1); RED CELL DISTRIBUTION WIDTH 18.4 % (11.6-14.6)
[2020-01-05 12:00] VITALS: BP 127/87
[2020-01-05] MEDS: NICOTINE 14MG PATCH TD SCH (14:28)
[2020-01-05 20:00] VITALS: BP 134/54
[2020-01-06 00:04] VITALS: BP 137/89
[2020-01-06 04:00] VITALS: BP 137/87
[2020-01-06 06:19] LABS: HEMATOCRIT. 31.7 % (42.0-52.0); MEAN CORPUSCULAR HEMOGLOBIN 23.5 pg (28.0-32.0); PLATELET 203 x1000/uL (130-400); RED BLOOD CELL COUNT 4.24 mill/uL (4.7-6.1); RED CELL DISTRIBUTION WIDTH 19.1 % (11.6-14.6)
[2020-01-06] MEDS: BLOOD SUGAR DIAGNOSTIC STRIP TEST SCH ×4 (06:20→20:11)
[2020-01-06 07:28] LABS: PHOSPHORUS 5.2 mg/dL (2.5-4.9)
[2020-01-06 07:49] VITALS: BP 139/78
[2020-01-06] MEDS: PANTOPRAZOLE SODIUM 40 MG/VIAL IV SCH (08:14)
[2020-01-06] MEDS: LINAGLIPTIN 5MG TABLET PO SCH (08:15)
[2020-01-06] MEDS: APIXABAN 2.5 MG TABLET PO SCH ×2 (08:15→17:00)
[2020-01-06] MEDS: NICOTINE 14MG PATCH TD SCH (08:15)
[2020-01-06] MEDS: CARVEDILOL 6.25 MG TABLET PO SCH ×2 (08:15→21:00)
[2020-01-06] MEDS: INSULIN LISPRO 100 UNITS/ML SUBCUT SCH ×4 (08:17→20:11)
[2020-01-06 08:29] LABS: PLATELET ESTIMATE NORMAL
[2020-01-06 12:00] VITALS: BP 125/84
[2020-01-06] MEDS: SODIUM CHLORIDE 0.9% IV SCH (12:00)
[2020-01-06] MEDS: VANCOMYCIN IV SCH (12:00)
[2020-01-06 16:00] VITALS: BP 123/77
[2020-01-06 20:00] VITALS: BP 132/74
[2020-01-07] VITALS: BP 136/63
[2020-01-07 04:00] VITALS: BP 142/61
[2020-01-07] MEDS: BLOOD SUGAR DIAGNOSTIC STRIP TEST SCH ×4 (06:43→21:00)
[2020-01-07] MEDS: INSULIN LISPRO 100 UNITS/ML SUBCUT SCH ×4 (06:46→22:05)
[2020-01-07 06:56] LABS: HEMATOCRIT. 32.5 % (42.0-52.0); MEAN CORPUSCULAR HEMOGLOBIN 23.2 pg (28.0-32.0); MEAN CORPUSCULAR VOLUME 75.8 fL (80.0-94.0); MEAN PLATELET VOLUME 9.5 fl (7.4-10.4); PLATELET 191 x1000/uL (130-400); RED BLOOD CELL COUNT 4.29 mill/uL (4.7-6.1); RED CELL DISTRIBUTION WIDTH 19.4 % (11.6-14.6)
[2020-01-07 06:59] LABS: PHOSPHORUS 5.7 mg/dL (2.5-4.9)
[2020-01-07 10:35] LABS: PLATELET ESTIMATE NORMAL
[2020-01-07] MEDS: CARVEDILOL 6.25 MG TABLET PO SCH ×2 (10:53→20:45)
[2020-01-07] MEDS: LINAGLIPTIN 5MG TABLET PO SCH (10:53)
[2020-01-07] MEDS: NICOTINE 14MG PATCH TD SCH (10:54)
[2020-01-07] MEDS: PANTOPRAZOLE SODIUM 40 MG/VIAL IV SCH (11:59)
[2020-01-07] MEDS: APIXABAN 2.5 MG TABLET PO SCH ×2 (12:57→16:14)
[2020-01-07] MEDS: CITRIC ACID/SODIUM CITRATE SOLN 30ML UDC PO SCH ×2 (18:05→18:09)
[2020-01-07 20:00] VITALS: BP 130/79
[2020-01-08] VITALS: BP 142/78
[2020-01-08 04:00] VITALS: BP 124/68
[2020-01-08] MEDS: BLOOD SUGAR DIAGNOSTIC STRIP TEST SCH ×4 (06:27→21:33)
[2020-01-08] MEDS: INSULIN LISPRO 100 UNITS/ML SUBCUT SCH ×4 (06:27→21:00)
[2020-01-08 07:49] LABS: HEMATOCRIT. 31.8 % (42.0-52.0); HEMOGLOBIN. 10.2 g/dL (14.0-18.0); LYMPHOCYTES % 25.6 % (20.0-50.0); MEAN CORPUSCULAR VOLUME 74.5 fL (80.0-94.0); MEAN PLATELET VOLUME 9.5 fl (7.4-10.4); MONOCYTES % 7.5 % (2.0-8.0); NEUTROPHILS % 63.9 % (40.0-76.0); PLATELET 219 x1000/uL (130-400); RED BLOOD CELL COUNT 4.27 mill/uL (4.7-6.1); RED CELL DISTRIBUTION WIDTH 19.4 % (11.6-14.6)
[2020-01-08 08:00] VITALS: BP 144/100
[2020-01-08 08:34] LABS: PHOSPHORUS 5.9 mg/dL (2.5-4.9)
[2020-01-08] MEDS: CITRIC ACID/SODIUM CITRATE SOLN 30ML UDC PO SCH ×3 (08:40→17:26)
[2020-01-08] MEDS: CARVEDILOL 6.25 MG TABLET PO SCH ×2 (08:40→21:01)
[2020-01-08] MEDS: LINAGLIPTIN 5MG TABLET PO SCH (08:40)
[2020-01-08] MEDS: PANTOPRAZOLE SODIUM 40 MG/VIAL IV SCH ×2 (08:40→08:48)
[2020-01-08] MEDS: APIXABAN 2.5 MG TABLET PO SCH ×2 (08:40→17:26)
[2020-01-08] MEDS: NICOTINE 14MG PATCH TD SCH (08:42)
[2020-01-08] MEDS: LORAZEPAM 1MG TABLET PO PRN (11:19)
[2020-01-08 12:00] VITALS: BP 143/94
[2020-01-08] MEDS ORDERED: SODIUM BICARBONATE 4% (2.4MEQ) 5ML VIAL IV ONE (12:56)
[2020-01-08] MEDS ORDERED: LIDOCAINE HCL 1% 20ML VIAL (Pyxis) INJ ONE (12:56)
[2020-01-08 16:00] VITALS: BP 150/97
[2020-01-08 20:00] VITALS: BP 134/99
[2020-01-09] VITALS: BP 134/93
[2020-01-09 04:00] VITALS: BP 156/99
[2020-01-09] MEDS: LORAZEPAM 1MG TABLET PO PRN ×2 (04:31→21:26)
[2020-01-09] MEDS: BLOOD SUGAR DIAGNOSTIC STRIP TEST SCH ×4 (07:31→21:26)
[2020-01-09] MEDS: INSULIN LISPRO 100 UNITS/ML SUBCUT SCH ×4 (07:45→21:39)
[2020-01-09 08:00] VITALS: BP 138/76
[2020-01-09 08:20] LABS: HEMATOCRIT. 36.5 % (42.0-52.0); HEMOGLOBIN. 11.3 g/dL (14.0-18.0); MEAN CORPUSCULAR HEMOGLOBIN 23.3 pg (28.0-32.0); MEAN CORPUSCULAR VOLUME 75.3 fL (80.0-94.0); MEAN PLATELET VOLUME 9.6 fl (7.4-10.4); PLATELET 194 x1000/uL (130-400); RED BLOOD CELL COUNT 4.84 mill/uL (4.7-6.1); RED CELL DISTRIBUTION WIDTH 19.6 % (11.6-14.6)
[2020-01-09] MEDS: NICOTINE 14MG PATCH TD SCH (08:50)
[2020-01-09] MEDS: CARVEDILOL 6.25 MG TABLET PO SCH ×2 (08:50→21:26)
[2020-01-09] MEDS: LINAGLIPTIN 5MG TABLET PO SCH (08:50)
[2020-01-09] MEDS: CITRIC ACID/SODIUM CITRATE SOLN 30ML UDC PO SCH ×3 (08:50→17:35)
[2020-01-09] MEDS: PANTOPRAZOLE SODIUM 40 MG/VIAL IV SCH (08:50)
[2020-01-09] MEDS: APIXABAN 2.5 MG TABLET PO SCH (08:50)
[2020-01-09] MEDS: SODIUM CHLORIDE 0.9% IV SCH (09:00)
[2020-01-09] MEDS: VANCOMYCIN IV SCH (09:00)
[2020-01-09 12:00] VITALS: BP 126/58
[2020-01-09 12:01] LABS: PHOSPHORUS 5.4 mg/dL (2.5-4.9)
[2020-01-09] MEDS: VANCOMYCIN 750 MG PREMIX 150 ML IV NR ×2 (13:41→15:40)
[2020-01-09 14:01] LABS: PLATELET ESTIMATE NORMAL
[2020-01-09 16:00] VITALS: BP 123/57
[2020-01-09 20:00] VITALS: BP 114/62
[2020-01-09 23:57] LABS: INR 1.4; PARTIAL THROMBOPLASTIN TIME 36.4 sec (23.4-31.0); PROTHROMBIN TIME 15.3 sec (9.6-11.0)
[2020-01-10] VITALS: BP 112/50
[2020-01-10 04:00] VITALS: BP 119/49
[2020-01-10] MEDS: BLOOD SUGAR DIAGNOSTIC STRIP TEST SCH ×4 (06:53→21:49)
[2020-01-10] MEDS: INSULIN LISPRO 100 UNITS/ML SUBCUT SCH ×4 (07:50→21:50)
[2020-01-10 08:00] VITALS: BP 135/96
[2020-01-10] MEDS: PANTOPRAZOLE SODIUM 40 MG/VIAL IV SCH (09:00)
[2020-01-10] MEDS: CARVEDILOL 6.25 MG TABLET PO SCH ×2 (09:03→21:04)
[2020-01-10] MEDS: LINAGLIPTIN 5MG TABLET PO SCH (09:03)
[2020-01-10] MEDS: NICOTINE 14MG PATCH TD SCH (09:03)
[2020-01-10] MEDS: CITRIC ACID/SODIUM CITRATE SOLN 30ML UDC PO SCH ×3 (09:03→17:39)
[2020-01-10 12:00] VITALS: BP 140/95
[2020-01-10 16:00] VITALS: BP 142/96
[2020-01-10 20:00] VITALS: BP 137/74
[2020-01-10] MEDS: LORAZEPAM 1MG TABLET PO PRN (21:04)
[2020-01-11] VITALS: BP 124/67
[2020-01-11] MEDS: LORAZEPAM 1MG TABLET PO PRN ×3 (03:13→16:09)
[2020-01-11 04:00] VITALS: BP 131/70
[2020-01-11] MEDS: BLOOD SUGAR DIAGNOSTIC STRIP TEST SCH ×4 (06:31→20:44)
[2020-01-11 07:38] LABS: PHOSPHORUS 7.5 mg/dL (2.5-4.9)
[2020-01-11] MEDS: INSULIN LISPRO 100 UNITS/ML SUBCUT SCH ×4 (07:50→20:47)
[2020-01-11 07:55] LABS: HEMATOCRIT. 31.7 % (42.0-52.0); MEAN CORPUSCULAR HEMOGLOBIN 23.3 pg (28.0-32.0); MEAN PLATELET VOLUME 9.4 fl (7.4-10.4); PLATELET 188 x1000/uL (130-400); RED BLOOD CELL COUNT 4.28 mill/uL (4.7-6.1); RED CELL DISTRIBUTION WIDTH 20.1 % (11.6-14.6)
[2020-01-11] MEDS: CARVEDILOL 6.25 MG TABLET PO SCH ×2 (09:00→20:49)
[2020-01-11] MEDS: SODIUM CHLORIDE 0.9% IV SCH (09:00)
[2020-01-11] MEDS: PANTOPRAZOLE SODIUM 40 MG/VIAL IV SCH (09:00)
[2020-01-11] MEDS: VANCOMYCIN IV SCH (09:00)
[2020-01-11] MEDS: NICOTINE 14MG PATCH TD SCH (09:19)
[2020-01-11] MEDS: CITRIC ACID/SODIUM CITRATE SOLN 30ML UDC PO SCH ×3 (09:19→16:14)
[2020-01-11] MEDS: LINAGLIPTIN 5MG TABLET PO SCH (09:19)
[2020-01-11 12:00] VITALS: BP 102/45
[2020-01-11 14:16] LABS: PLATELET ESTIMATE NORMAL
[2020-01-11 16:00] VITALS: BP 104/42
[2020-01-11 20:00] VITALS: BP 133/81
[2020-01-11] MEDS: HALOPERIDOL LACTATE 5MG/ML VIAL IM PRN (23:44)
[2020-01-12] VITALS: BP 116/78
[2020-01-12 04:00] VITALS: BP 121/76
[2020-01-12 07:13] LABS: HEMATOCRIT. 33.7 % (42.0-52.0); HEMOGLOBIN. 10.6 g/dL (14.0-18.0); MEAN CORPUSCULAR HEMOGLOBIN 23.1 pg (28.0-32.0); MEAN CORPUSCULAR VOLUME 73.6 fL (80.0-94.0); MEAN PLATELET VOLUME 9.8 fl (7.4-10.4); PLATELET 189 x1000/uL (130-400); RED BLOOD CELL COUNT 4.59 mill/uL (4.7-6.1); RED CELL DISTRIBUTION WIDTH 19.9 % (11.6-14.6)
[2020-01-12 07:17] LABS: PHOSPHORUS 7.6 mg/dL (2.5-4.9)
[2020-01-12] MEDS: BLOOD SUGAR DIAGNOSTIC STRIP TEST SCH ×4 (07:34→21:24)
[2020-01-12] MEDS: NICOTINE 14MG PATCH TD SCH (08:57)
[2020-01-12] MEDS: LINAGLIPTIN 5MG TABLET PO SCH (08:57)
[2020-01-12] MEDS: LORAZEPAM 1MG TABLET PO PRN (08:57)
[2020-01-12] MEDS: CARVEDILOL 6.25 MG TABLET PO SCH ×2 (08:57→21:19)
[2020-01-12] MEDS: PANTOPRAZOLE SODIUM 40 MG/VIAL IV SCH (09:00)
[2020-01-12] MEDS: INSULIN LISPRO 100 UNITS/ML SUBCUT SCH ×4 (09:01→21:30)
[2020-01-12] MEDS: HALOPERIDOL LACTATE 5MG/ML VIAL IM PRN ×2 (12:49→23:54)
[2020-01-12] MEDS ORDERED: SODIUM BICARBONATE 4% (2.4MEQ) 5ML VIAL IV ONE (13:27)
[2020-01-12] MEDS ORDERED: LIDOCAINE HCL 1% 20ML VIAL (Pyxis) INJ ONE (13:28)
[2020-01-12 14:14] LABS: NUCLEATED RED BLOOD CELLS 1 /100 WBC; PLATELET ESTIMATE NORMAL
[2020-01-12] MEDS ORDERED: SODIUM POLYSTYRENE SULFONATE 15 G/60 ML BOT PO NR (17:30)
[2020-01-12 20:00] VITALS: BP 127/90
[2020-01-13] VITALS: BP 129/93
[2020-01-13 04:00] VITALS: BP 119/86
[2020-01-13] MEDS: BLOOD SUGAR DIAGNOSTIC STRIP TEST SCH ×4 (06:20→21:14)
[2020-01-13 06:23] LABS: PHOSPHORUS 8.1 mg/dL (2.5-4.9)
[2020-01-13 06:59] LABS: HEMOGLOBIN. 9.8 g/dL (14.0-18.0); MEAN CORPUSCULAR HEMOGLOBIN 23.5 pg (28.0-32.0); MEAN PLATELET VOLUME 10.7 fl (7.4-10.4); PLATELET 181 x1000/uL (130-400); RED BLOOD CELL COUNT 4.19 mill/uL (4.7-6.1); RED CELL DISTRIBUTION WIDTH 20.5 % (11.6-14.6)
[2020-01-13] MEDS: INSULIN LISPRO 100 UNITS/ML SUBCUT SCH ×4 (07:50→21:14)
[2020-01-13 08:00] VITALS: BP 121/67
[2020-01-13] MEDS: PANTOPRAZOLE SODIUM 40 MG/VIAL IV SCH (08:48)
[2020-01-13] MEDS: NICOTINE 14MG PATCH TD SCH (08:49)
[2020-01-13] MEDS: CARVEDILOL 6.25 MG TABLET PO SCH (08:49)
[2020-01-13] MEDS: LINAGLIPTIN 5MG TABLET PO SCH (08:49)
[2020-01-13 12:00] VITALS: BP 105/38
[2020-01-13 14:47] LABS: ATYPICAL LYMPHOCYTES 1; NUCLEATED RED BLOOD CELLS 2 /100 WBC; PLATELET ESTIMATE NORMAL
[2020-01-13 16:00] VITALS: BP 108/50
[2020-01-13] MEDS: SEVELAMER CARBONATE 800 MG TABLET PO SCH (17:01)
[2020-01-13 20:00] VITALS: BP 148/73
[2020-01-13] MEDS: CARVEDILOL 3.125 MG TABLET PO SCH (21:13)
[2020-01-14] VITALS: BP 122/68
[2020-01-14 04:00] VITALS: BP 129/82
[2020-01-14] MEDS: BLOOD SUGAR DIAGNOSTIC STRIP TEST SCH ×4 (06:23→21:39)
[2020-01-14 07:36] LABS: INR 1.3; PROTHROMBIN TIME 14.5 sec (9.6-11.0)
[2020-01-14] MEDS: INSULIN LISPRO 100 UNITS/ML SUBCUT SCH ×4 (07:50→21:00)
[2020-01-14] MEDS: SEVELAMER CARBONATE 800 MG TABLET PO SCH ×3 (07:50→17:20)
[2020-01-14 07:52] LABS: BASOPHILS % 1.5 % (0.0-2.0); EOSINOPHILS % 2.1 % (0.0-5.0); HEMATOCRIT. 31.4 % (42.0-52.0); HEMOGLOBIN. 10.1 g/dL (14.0-18.0); LYMPHOCYTES % 23.9 % (20.0-50.0); MEAN CORPUSCULAR HEMOGLOBIN 23.9 pg (28.0-32.0); MEAN PLATELET VOLUME 10.2 fl (7.4-10.4); MONOCYTES % 14.5 % (2.0-8.0); PLATELET 161 x1000/uL (130-400); RED BLOOD CELL COUNT 4.24 mill/uL (4.7-6.1); RED CELL DISTRIBUTION WIDTH 20.4 % (11.6-14.6)
[2020-01-14 07:59] LABS: CHLORIDE 97 mEq/L (98-107)
[2020-01-14 08:00] VITALS: BP 140/52
[2020-01-14 08:14] LABS: PHOSPHORUS 8.9 mg/dL (2.5-4.9)
[2020-01-14] MEDS: HALOPERIDOL LACTATE 5MG/ML VIAL IM PRN ×2 (08:19→23:49)
[2020-01-14] MEDS: PANTOPRAZOLE SODIUM 40 MG/VIAL IV SCH (08:36)
[2020-01-14] MEDS ORDERED: SODIUM BICARBONATE 4% (2.4MEQ) 5ML VIAL IV ONE (08:37)
[2020-01-14] MEDS ORDERED: HEPARIN 1000 UNITS/ML 10ML ONE (08:37)
[2020-01-14] MEDS ORDERED: LIDOCAINE HCL 1% 20ML VIAL (Pyxis) INJ ONE (08:38)
[2020-01-14] MEDS: LINAGLIPTIN 5MG TABLET PO SCH (09:00)
[2020-01-14] MEDS: CARVEDILOL 3.125 MG TABLET PO SCH ×2 (09:00→21:28)
[2020-01-14 12:00] VITALS: BP_SYST 128; BP_SYST 138; BP_DIAS 47; BP_DIAS 61
[2020-01-14] MEDS: NICOTINE 14MG PATCH TD SCH (12:39)
[2020-01-14 16:00] VITALS: BP_SYST 135; BP_SYST 143; BP_DIAS 48; BP_DIAS 75
[2020-01-15] VITALS (7 sets, daily range): BP systolic 120–147; BP diastolic 75–92
[2020-01-15] MEDS: BLOOD SUGAR DIAGNOSTIC STRIP TEST SCH ×4 (06:30→21:00)
[2020-01-15] MEDS: LINAGLIPTIN 5MG TABLET PO SCH (08:56)
[2020-01-15] MEDS: NICOTINE 14MG PATCH TD SCH (08:57)
[2020-01-15] MEDS: SEVELAMER CARBONATE 800 MG TABLET PO SCH ×3 (08:57→17:42)
[2020-01-15] MEDS: PANTOPRAZOLE 40MG DR TABLET PO SCH (08:57)
[2020-01-15] MEDS: CARVEDILOL 3.125 MG TABLET PO SCH ×2 (08:58→21:05)
[2020-01-15] MEDS: INSULIN LISPRO 100 UNITS/ML SUBCUT SCH ×4 (10:01→22:06)
[2020-01-15] MEDS ORDERED: VANCOMYCIN 500 MG PREMIX 100 ML IV SCH (21:00)
[2020-01-15] MEDS: HALOPERIDOL LACTATE 5MG/ML VIAL IM PRN (21:06)
[2020-01-16] VITALS: BP 128/79
[2020-01-16 04:00] VITALS: BP 141/91
[2020-01-16] MEDS: HALOPERIDOL LACTATE 5MG/ML VIAL IM PRN ×3 (06:27→23:10)
[2020-01-16] MEDS: BLOOD SUGAR DIAGNOSTIC STRIP TEST SCH ×4 (06:32→21:40)
[2020-01-16] MEDS: INSULIN LISPRO 100 UNITS/ML SUBCUT SCH ×4 (06:32→21:59)
[2020-01-16 08:00] VITALS: BP 151/83
[2020-01-16 08:07] LABS: PHOSPHORUS 6.3 mg/dL (2.5-4.9)
[2020-01-16 08:08] LABS: BASOPHILS % 2.1 % (0.0-2.0); EOSINOPHILS % 2.5 % (0.0-5.0); HEMATOCRIT. 33.3 % (42.0-52.0); HEMOGLOBIN. 10.4 g/dL (14.0-18.0); LYMPHOCYTES % 34.6 % (20.0-50.0); MEAN CORPUSCULAR HEMOGLOBIN 23.4 pg (28.0-32.0); MEAN PLATELET VOLUME 9.6 fl (7.4-10.4); MONOCYTES % 13.8 % (2.0-8.0); PLATELET 146 x1000/uL (130-400); RED BLOOD CELL COUNT 4.44 mill/uL (4.7-6.1); RED CELL DISTRIBUTION WIDTH 20.6 % (11.6-14.6)
[2020-01-16] MEDS: NICOTINE 14MG PATCH TD SCH (08:59)
[2020-01-16] MEDS: SEVELAMER CARBONATE 800 MG TABLET PO SCH ×3 (08:59→17:22)
[2020-01-16] MEDS: CARVEDILOL 3.125 MG TABLET PO SCH ×2 (09:00→21:58)
[2020-01-16] MEDS: PANTOPRAZOLE 40MG DR TABLET PO SCH (09:00)
[2020-01-16] MEDS: LINAGLIPTIN 5MG TABLET PO SCH (09:00)
[2020-01-16] MEDS ORDERED: HEPARIN SODIUM 1,000 UNIT/1ML VIAL IV NR (10:00)
[2020-01-16 12:00] VITALS: BP 143/85
[2020-01-16] MEDS ORDERED: VANCOMYCIN 1 G PREMIX 200 ML IV SCH (14:00)
[2020-01-16 16:00] VITALS: BP 134/76
[2020-01-16 20:00] VITALS: BP 149/71
[2020-01-17] VITALS: BP 133/85
[2020-01-17 04:00] VITALS: BP 140/72
[2020-01-17] MEDS: BLOOD SUGAR DIAGNOSTIC STRIP TEST SCH ×4 (07:20→21:31)
[2020-01-17] MEDS: INSULIN LISPRO 100 UNITS/ML SUBCUT SCH ×4 (07:50→21:00)
[2020-01-17] MEDS: SEVELAMER CARBONATE 800 MG TABLET PO SCH ×3 (07:50→17:31)
[2020-01-17 08:00] VITALS: BP 150/91
[2020-01-17 08:09] LABS: PHOSPHORUS 5.3 mg/dL (2.5-4.9)
[2020-01-17 08:12] LABS: BASOPHILS % 1.2 % (0.0-2.0); EOSINOPHILS % 3.3 % (0.0-5.0); HEMATOCRIT. 34.4 % (42.0-52.0); HEMOGLOBIN. 10.5 g/dL (14.0-18.0); LYMPHOCYTES % 34.9 % (20.0-50.0); MEAN CORPUSCULAR HEMOGLOBIN 23.8 pg (28.0-32.0); MEAN CORPUSCULAR VOLUME 78.4 fL (80.0-94.0); MEAN PLATELET VOLUME 10.7 fl (7.4-10.4); MONOCYTES % 14.7 % (2.0-8.0); NEUTROPHILS % 45.9 % (40.0-76.0); PLATELET 125 x1000/uL (130-400); RED BLOOD CELL COUNT 4.39 mill/uL (4.7-6.1)
[2020-01-17] MEDS: PANTOPRAZOLE 40MG DR TABLET PO SCH (09:00)
[2020-01-17] MEDS: CARVEDILOL 3.125 MG TABLET PO SCH ×2 (09:00→21:00)
[2020-01-17] MEDS: NICOTINE 14MG PATCH TD SCH (09:00)
[2020-01-17] MEDS: LINAGLIPTIN 5MG TABLET PO SCH (09:00)
[2020-01-17 12:00] VITALS: BP 123/90
[2020-01-17 16:00] VITALS: BP 131/87
[2020-01-17] MEDS: HALOPERIDOL LACTATE 5MG/ML VIAL IM PRN (19:27)
[2020-01-17 20:00] VITALS: BP 105/63
[2020-01-18] VITALS: BP 135/88
[2020-01-18 04:00] VITALS: BP 122/72
[2020-01-18] MEDS: HALOPERIDOL LACTATE 5MG/ML VIAL IM PRN (06:22)
[2020-01-18] MEDS: INSULIN LISPRO 100 UNITS/ML SUBCUT SCH ×2 (06:22→12:50)
[2020-01-18] MEDS: BLOOD SUGAR DIAGNOSTIC STRIP TEST SCH ×2 (06:22→13:07)
[2020-01-18 08:00] VITALS: BP 133/82
[2020-01-18 08:18] LABS: HEMATOCRIT. 30.4 % (42.0-52.0); HEMOGLOBIN. 9.3 g/dL (14.0-18.0); MEAN CORPUSCULAR HEMOGLOBIN 23.2 pg (28.0-32.0); MEAN CORPUSCULAR VOLUME 75.7 fL (80.0-94.0); MEAN PLATELET VOLUME 10.4 fl (7.4-10.4); PLATELET 131 x1000/uL (130-400); RED BLOOD CELL COUNT 4.02 mill/uL (4.7-6.1); RED CELL DISTRIBUTION WIDTH 20.8 % (11.6-14.6)
[2020-01-18 08:46] LABS: PHOSPHORUS 6.3 mg/dL (2.5-4.9)
[2020-01-18] MEDS: NICOTINE 14MG PATCH TD SCH (09:14)
[2020-01-18] MEDS: PANTOPRAZOLE 40MG DR TABLET PO SCH (09:15)
[2020-01-18] MEDS: SEVELAMER CARBONATE 800 MG TABLET PO SCH ×2 (09:15→13:07)
[2020-01-18] MEDS: CARVEDILOL 3.125 MG TABLET PO SCH (09:15)
[2020-01-18] MEDS: LINAGLIPTIN 5MG TABLET PO SCH (09:15)
[2020-01-18 09:58] LABS: NUCLEATED RED BLOOD CELLS 1 /100 WBC; PLATELET ESTIMATE NORMAL
[2020-01-18] MEDS ORDERED: LOSARTAN POTASSIUM 50 MG TABLET PO SCH (11:15)
[2020-01-18 14:57] VITALS: BP 123/66
== END 2020-01-18 16:22 | DRG 720 ==
LOC: ER 12:08 → EDBEDREQTM 14:33 → EDBEDREQ 14:33 → EDBEDREQSVC 14:33 → 7WST 16:30 → EDBEDREQTM 16:32 → EDBEDREQ 16:32 → CANRESERV 12-28 08:48 → ENRESERV 12-28 08:48 → 7WST 12-28 13:52 → 6WST 12-28 22:46 → 6EST 01-06 22:46
PROVIDERS: ADMIT Internal Medicine; ATTEND Internal Medicine
PROC: 0JPT3XZ Removal of Tunneled Vascular Access Device from Trunk Subcutaneous Tissue and Fascia, Percutaneous Approach (ICD-10-PCS; principal; 2019-12-30)
PROC: 05PYX3Z Removal of Infusion Device from Upper Vein, External Approach (ICD-10-PCS; 2019-12-30)
PROC: 02H633Z Insertion of Infusion Device into Right Atrium, Percutaneous Approach (ICD-10-PCS; 2020-01-01)
PROC: 5A1D70Z Performance of Urinary Filtration, Intermittent, Less than 6 Hours Per Day (ICD-10-PCS; 2020-01-01)
PROC: 5A1D70Z Performance of Urinary Filtration, Intermittent, Less than 6 Hours Per Day (ICD-10-PCS; 2020-01-04)
PROC: 5A1D70Z Performance of Urinary Filtration, Intermittent, Less than 6 Hours Per Day (ICD-10-PCS; 2020-01-06)
PROC: 02HV33Z Insertion of Infusion Device into Superior Vena Cava, Percutaneous Approach (ICD-10-PCS; 2020-01-08)
PROC: B548ZZA Ultrasonography of Superior Vena Cava, Guidance (ICD-10-PCS; 2020-01-08)
PROC: B518ZZA Fluoroscopy of Superior Vena Cava, Guidance (ICD-10-PCS; 2020-01-08)
PROC: 5A1D70Z Performance of Urinary Filtration, Intermittent, Less than 6 Hours Per Day (ICD-10-PCS; 2020-01-08)
PROC: 02H633Z Insertion of Infusion Device into Right Atrium, Percutaneous Approach (ICD-10-PCS; 2020-01-14)
PROC: B518ZZA Fluoroscopy of Superior Vena Cava, Guidance (ICD-10-PCS; 2020-01-14)
PROC: 5A1D70Z Performance of Urinary Filtration, Intermittent, Less than 6 Hours Per Day (ICD-10-PCS; 2020-01-14)
PROC: 5A1D70Z Performance of Urinary Filtration, Intermittent, Less than 6 Hours Per Day (ICD-10-PCS; 2020-01-16)
PROC: 5A1D70Z Performance of Urinary Filtration, Intermittent, Less than 6 Hours Per Day (ICD-10-PCS; 2020-01-18)
DX: A41.02 Sepsis due to Methicillin resistant Staphylococcus aureus (principal); I21.4 Non-ST elevation (NSTEMI) myocardial infarction; I63.40 Cerebral infarction due to embolism of unspecified cerebral artery; I33.0 Acute and subacute infective endocarditis; G93.40 Encephalopathy, unspecified; E43 Unspecified severe protein-calorie malnutrition; J96.91 Respiratory failure, unspecified with hypoxia; I96 Gangrene, not elsewhere classified; I13.2 Hypertensive heart and chronic kidney disease with heart failure and with stage 5 chronic kidney disease, or end stage renal disease; N18.6 End stage renal disease; K92.2 Gastrointestinal hemorrhage, unspecified; D68.9 Coagulation defect, unspecified; E11.22 Type 2 diabetes mellitus with diabetic chronic kidney disease; E11.52 Type 2 diabetes mellitus with diabetic peripheral angiopathy with gangrene; D62 Acute posthemorrhagic anemia; I25.2 Old myocardial infarction; N39.0 Urinary tract infection, site not specified; R65.20 Severe sepsis without septic shock; D50.9 Iron deficiency anemia, unspecified; I25.10 Atherosclerotic heart disease of native coronary artery without angina pectoris; I25.5 Ischemic cardiomyopathy; E78.5 Hyperlipidemia, unspecified; E87.5 Hyperkalemia; E11.42 Type 2 diabetes mellitus with diabetic polyneuropathy; E78.00 Pure hypercholesterolemia, unspecified; N25.81 Secondary hyperparathyroidism of renal origin; I34.8 Other nonrheumatic mitral valve disorders; F12.90 Cannabis use, unspecified, uncomplicated; F17.210 Nicotine dependence, cigarettes, uncomplicated; B96.89 Other specified bacterial agents as the cause of diseases classified elsewhere; E83.39 Other disorders of phosphorus metabolism; I50.22 Chronic systolic (congestive) heart failure; E83.41 Hypermagnesemia; Z20.828 Contact with and (suspected) exposure to other viral communicable diseases; J44.9 Chronic obstructive pulmonary disease, unspecified; Z99.2 Dependence on renal dialysis; Z95.1 Presence of aortocoronary bypass graft; Z79.82 Long term (current) use of aspirin; Z79.899 Other long term (current) drug therapy; Z95.5 Presence of coronary angioplasty implant and graft; Z91.15 Patient's noncompliance with renal dialysis; Z86.79 Personal history of other diseases of the circulatory system; Z86.14 Personal history of Methicillin resistant Staphylococcus aureus infection; Z86.73 Personal history of transient ischemic attack (TIA), and cerebral infarction without residual deficits; Z79.01 Long term (current) use of anticoagulants; Z79.4 Long term (current) use of insulin; Z68.24 Body mass index [BMI] 24.0-24.9, adult; Z78.1 Physical restraint status; Z82.49 Family history of ischemic heart disease and other diseases of the circulatory system; Z83.3 Family history of diabetes mellitus; Z95.2 Presence of prosthetic heart valve
CPT/HCPCS: 36415; 36589; 36600; 70551; 71045; 76937; 77001; 78452; 80048; 80053; 80202; 81003; 82375; 82607; 82728; 82746; 82805; 82962; 83036; 83540; 83550; 83605; 83735; 84100; 84484; 85014; 85018; 85025; 86850; 86900; 87077; 87804; 93005; 93017; 93306; 97116; 97162; 97166; 97530; 99291; A9500; C1752; C1769; C1887; C9113; J1630; J1642; J1644; J1650; J1815; J1956; J2543; J2785; J3370; J3430; J3490; J7030; J7040; U0003-CS

== ENCOUNTER 2020-02-10 08:32 | Inpatient (IN) | payer MEDICAID ==
[~2020-02-10] VITALS: Ht 172.7 cm; Wt 59.0 kg
[~2020-02-10 08:32] MED LIST changes: +FAMO20TA8 PO; +GABA-529 PO; +NORT25CA PO; +SEVE800T8 PO
[2020-02-10] MEDS ORDERED: ALOG25TA PO (08:48)
[2020-02-10] MEDS ORDERED: ACETAMINOPHEN 650MG SUPP PR STA (08:49)
[2020-02-10] MEDS ORDERED: CALC-1098 PO (08:53)
[2020-02-10] MEDS ORDERED: APIX2.5T PO (08:53)
[2020-02-10] MEDS ORDERED: INSLIS SUBCUT (08:53)
[2020-02-10] MEDS ORDERED: NUT.237L64 PO (08:53)
[2020-02-10] MEDS ORDERED: CRAN450T10 PO (08:53)
[2020-02-10] MEDS ORDERED: NICO-645 TD (08:53)
[2020-02-10] MEDS ORDERED: LINA5TAB PO (08:53)
[2020-02-10] MEDS ORDERED: SEVE800T8 PO (08:53)
[2020-02-10] MEDS ORDERED: CLON-457 PO (08:53)
[2020-02-10] MEDS ORDERED: PANT40SU PO (08:53)
[2020-02-10] MEDS ORDERED: HALO2TAB PO (08:53)
[2020-02-10] MEDS ORDERED: SODIUM CHLORIDE 0.9% 1000ML BAG (SEPSIS BOLUS) IV ONE (09:00)
[2020-02-10] MEDS ORDERED: VANCOMYCIN 1 G PREMIX 200 ML IV ONE (09:00)
[2020-02-10] MEDS ORDERED: PIPERACILLIN/TAZ 3.375G PREMIX 50 ML IV ONE (09:00)
[2020-02-10 09:43] LABS: BASOPHILS % 0.5 % (0.0-2.0); EOSINOPHILS % 0.2 % (0.0-5.0); HEMATOCRIT. 35.3 % (42.0-52.0); HEMOGLOBIN. 11.1 g/dL (14.0-18.0); LYMPHOCYTES % 13.7 % (20.0-50.0); MEAN CORPUSCULAR HEMOGLOBIN 22.7 pg (28.0-32.0); MEAN CORPUSCULAR VOLUME 72.2 fL (80.0-94.0); MEAN PLATELET VOLUME 10.4 fl (7.4-10.4); MONOCYTES % 11.8 % (2.0-8.0); NEUTROPHILS % 73.8 % (40.0-76.0); PLATELET 183 x1000/uL (130-400); RED BLOOD CELL COUNT 4.88 mill/uL (4.7-6.1); RED CELL DISTRIBUTION WIDTH 17.8 % (11.6-14.6)
[2020-02-10] MEDS ORDERED: NOREPINEPHRINE 4 MG in DEXT 5% WATER 246 ML IV ONE (10:00)
[2020-02-10 10:04] LABS: D-DIMER 5.82 mg/L FEU (<0.50); INR 1.4; PROTHROMBIN TIME 14.8 sec (9.6-11.0)
[2020-02-10 10:16] LABS: CHLORIDE 105 mEq/L (98-107)
[2020-02-10] MEDS ORDERED: DEXT 5%/0.45% NACL 1000ML 1,000 ML IV SCH (12:19)
[2020-02-10] MEDS ORDERED: HYDROCODONE/ACETAMINOPHEN 5/325MG TABLET PO PRN (12:30)
[2020-02-10] MEDS ORDERED: ENOXAPARIN 40MG/0.4ML SYR SUBCUT SCH (12:30)
[2020-02-10] MEDS ORDERED: ACETAMINOPHEN 325MG TABLET PO PRN (12:30)
[2020-02-10] MEDS ORDERED: MAGNESIUM/ALUMINUM HYDROXIDE/SIMETHICONE 30ML UDC PO PRN (12:30)
[2020-02-10] MEDS ORDERED: DOCUSATE SODIUM 100MG CAPSULE PO PRN (12:30)
[2020-02-10] MEDS ORDERED: NA PHOS,M-B/NA PHOS,DI-BA ENEMA 118ML PR PRN (12:30)
[2020-02-10] MEDS ORDERED: ONDANSETRON HCL 4MG/2ML INJ IV PRN (12:30)
[2020-02-10] MEDS ORDERED: MORPHINE SULFATE 2 MG/ML CPJ (NOT FOR IM USE) IV PRN (12:30)
[2020-02-10] MEDS ORDERED: IPRATROPIUM/ALBUTEROL 0.5-3(2.5)MG/3ML NEB NEB PRN (12:30)
[2020-02-10] MEDS ORDERED: DIPHENHYDRAMINE 50MG/ML VIAL IV PRN (12:30)
[2020-02-10] MEDS ORDERED: LORAZEPAM 2MG/ML CPJ IV PRN (12:30)
[2020-02-10] MEDS ORDERED: PIPERACILLIN/TAZ 3.375G PREMIX 50 ML IV SCH (12:30)
[2020-02-10] MEDS ORDERED: CLONIDINE 0.1MG TABLET PO PRN (12:30)
[2020-02-10] MEDS ORDERED: GUAIFENESIN 200MG/10ML SUGAR FREE UDC PO PRN (12:30)
[2020-02-10] MEDS ORDERED: ASPIRIN 300MG SUPP PR ONE (12:45)
[2020-02-10] MEDS ORDERED: ENOXAPARIN 30MG/0.3ML SYR SUBCUT SCH (13:00)
[2020-02-10] MEDS ORDERED: NOREPINEPHRINE 4MG/250ML PMX 250 ML IV ONE (13:45)
[2020-02-10] MEDS ORDERED: ACETAMINOPHEN 650MG SUPP PR PRN (14:15)
[2020-02-10] MEDS ORDERED: PHENYLEPHRINE 40 MG in DEXT 5% WATER 246 ML IV PRN ×4 (16:45)
[2020-02-10 17:20] LABS: BG BASE EXCESS -4.5 mmol/L (-2.0-2.0); BG CARBOXYHEMOGLOBIN 0.3 % (0.5-1.5); BG DEOXYHEMOGLOBIN 1.7 % (0.0-5.0); BG FRACTION INSPIRED OXYGEN 32; BG HCO3 ACT 20.7 mmol/L (22.0-26.0); BG METHEMOGLOBIN 0.3 % (0.0-1.5); BG OXYGEN SATURATION 98.3 % (92.0-98.5); BG OXYHEMOGLOBIN 97.7 % (94.0-97.0); BG PCO2 38.2 mmHg (35.0-45.0); BG PH 7.351 (7.350-7.450); BG PO2 137.4 mmHg (75.0-100.0); BG SAMPLE SITE RIGHT BRACHIAL; BG TOTAL HEMOGLOBIN 10.9 g/dL (12.0-18.0); BG VENT MODE NASAL CANNULA
[2020-02-10] MEDS ORDERED: DEXTROSE 50% WATER 50ML SYRINGE IV PRN (20:00)
[2020-02-10] MEDS ORDERED: INSULIN LISPRO 100 UNITS/ML SUBCUT SCH (21:00)
[2020-02-10] MEDS: BLOOD SUGAR DIAGNOSTIC STRIP TEST SCH (21:49)
[2020-02-10] MEDS ORDERED: NOREPINEPHRINE 4MG/250ML PMX 250 ML IV PRN (22:15)
[2020-02-10] MEDS ORDERED: ENOXAPARIN 30MG/0.3ML SYR SUBCUT NR (22:30)
[2020-02-10] MEDS: PIPERACILLIN/TAZOBACTAM 2.25 G in DEXTROSE 5% WATER 50 ML IV SCH (22:30)
[2020-02-11] MEDS ORDERED: PHENYLEPHRINE 40 MG in DEXT 5% WATER 246 ML IV PRN ×2
[2020-02-11] MEDS: INSULIN LISPRO (HIGH DOSE) 100 UNITS/ML SUBCUT SCH ×4 (00:18→17:00)
[2020-02-11] MEDS ORDERED: PHENYLEPHRINE 80 MG in DEXT 5% WATER 492 ML IV PRN (00:45)
[2020-02-11] MEDS ORDERED: PHENYLEPHRINE 80 MG in DEXT 5% WATER 500 ML IV PRN (00:45)
[2020-02-11] MEDS ORDERED: VASOPRESSIN 10 UNIT in SODIUM CHLORIDE 0.9% 100 ML IV SCH (02:15)
[2020-02-11 04:22] LABS: HEMATOCRIT. 39.7 % (42.0-52.0); HEMOGLOBIN. 12.1 g/dL (14.0-18.0); MEAN CORPUSCULAR HEMOGLOBIN 22.7 pg (28.0-32.0); MEAN CORPUSCULAR VOLUME 74.4 fL (80.0-94.0); MEAN PLATELET VOLUME 10.2 fl (7.4-10.4); PLATELET 154 x1000/uL (130-400); RED BLOOD CELL COUNT 5.33 mill/uL (4.7-6.1); RED CELL DISTRIBUTION WIDTH 18.4 % (11.6-14.6)
[2020-02-11 04:24] LABS: CHLORIDE 108 mEq/L (98-107)
[2020-02-11 04:31] LABS: LDL CHOLESTEROL 24 mg/dL (5-100)
[2020-02-11 04:33] LABS: HDL CHOLESTEROL 14 mg/dL (40-59)
[2020-02-11 04:35] LABS: T4 FREE 1.04 ng/dL (0.76-1.46)
[2020-02-11] MEDS ORDERED: DOPAMINE 400MG/250ML PREMIX 250 ML IV PRN (05:15)
[2020-02-11 05:30] LABS: PLATELET ESTIMATE NORMAL
[2020-02-11] MEDS: BLOOD SUGAR DIAGNOSTIC STRIP TEST SCH ×3 (08:00→16:30)
[2020-02-11] MEDS: PIPERACILLIN/TAZOBACTAM 2.25 G in DEXTROSE 5% WATER 50 ML IV SCH (09:00)
[2020-02-11] MEDS ORDERED: ASPIRIN 81MG EC TABLET PO SCH (09:00)
[2020-02-11 10:52] LABS: BG BASE EXCESS -14.1 mmol/L (-2.0-2.0); BG CARBOXYHEMOGLOBIN 0.1 % (0.5-1.5); BG DEOXYHEMOGLOBIN 0.4 % (0.0-5.0); BG FRACTION INSPIRED OXYGEN 100; BG HCO3 ACT 10.9 mmol/L (22.0-26.0); BG METHEMOGLOBIN 0.2 % (0.0-1.5); BG OXYGEN SATURATION 99.6 % (92.0-98.5); BG OXYHEMOGLOBIN 99.3 % (94.0-97.0); BG PCO2 23.8 mmHg (35.0-45.0); BG PH 7.278 (7.350-7.450); BG SAMPLE SITE RIGHT BRACHIAL; BG TOTAL HEMOGLOBIN 11.9 g/dL (12.0-18.0); BG VENT MODE MASK - NRB
[2020-02-11] MEDS ORDERED: SODIUM CHLORIDE 0.9% 1,000 ML IV SCH (11:30)
[2020-02-11] MEDS ORDERED: PROPOFOL 10MG/ML 100ML 100 ML IV ONE (11:45)
[2020-02-11] MEDS ORDERED: VANCOMYCIN 1 G PREMIX 200 ML IV SCH (11:45)
[2020-02-11] MEDS ORDERED: ENOXAPARIN 60MG/0.6ML SYR SUBCUT SCH (12:00)
[2020-02-11] MEDS ORDERED: MIDAZOLAM HCL 50 MG in DEXTROSE 5% WATER 40 ML IV ONE (12:15)
[2020-02-11] MEDS ORDERED: MIDAZOLAM HCL 100 MG in DEXT 5% WATER 80 ML IV PRN (12:45)
[2020-02-11] MEDS ORDERED: VANCOMYCIN 500 MG PREMIX 100 ML IV SCH (13:30)
[2020-02-11] MEDS ORDERED: SODIUM BICARBONATE 100 MEQ in SODIUM CHLORIDE 0.45% 1,000 ML IV SCH (15:00)
[2020-02-11] MEDS ORDERED: SODIUM BICARBONATE 8.4% 1 MEQ/ML 50ML SYR IV NR (15:00)
[2020-02-11 16:26] LABS: BG BASE EXCESS -17.7 mmol/L (-2.0-2.0); BG CARBOXYHEMOGLOBIN 0.3 % (0.5-1.5); BG DEOXYHEMOGLOBIN 0.3 % (0.0-5.0); BG FRACTION INSPIRED OXYGEN 100; BG HCO3 ACT 9.6 mmol/L (22.0-26.0); BG METHEMOGLOBIN 0.1 % (0.0-1.5); BG OXYGEN SATURATION 99.7 % (92.0-98.5); BG OXYHEMOGLOBIN 99.3 % (94.0-97.0); BG PCO2 27.7 mmHg (35.0-45.0); BG PH 7.157 (7.350-7.450); BG SAMPLE SITE RIGHT BRACHIAL; BG TIDAL VOLUME(mL) 500 mL; BG TOTAL HEMOGLOBIN 12.5 g/dL (12.0-18.0); BG VENT MODE VENT - A/C; BG VENT RATE 18 set
[2020-02-11] MEDS ORDERED: LIDOCAINE HCL 1% 20ML VIAL (Pyxis) INJ ONE (16:59)
[2020-02-11 21:00] VITALS: BP 125/94
== END 2020-02-11 21:37 | disposition expired | DRG 720 ==
LOC: ER 08:42 → EDBEDREQ 11:05 → EDBEDREQTM 11:05 → EDBEDREQSVC 11:05 → CANRESERV 22:58 → ENRESERV 22:58 → MICUSO 23:42 → 5EST 02-11 21:24 → MICUSO 02-11 21:41
PROVIDERS: ADMIT Internal Medicine; ATTEND Internal Medicine
PROC: 5A1935Z Respiratory Ventilation, Less than 24 Consecutive Hours (ICD-10-PCS; principal; 2020-02-10)
PROC: 5A12012 Performance of Cardiac Output, Single, Manual (ICD-10-PCS; 2020-02-10)
PROC: 0BH17EZ Insertion of Endotracheal Airway into Trachea, Via Natural or Artificial Opening (ICD-10-PCS; 2020-02-10)
PROC: 02HV33Z Insertion of Infusion Device into Superior Vena Cava, Percutaneous Approach (ICD-10-PCS; 2020-02-10)
PROC: B548ZZA Ultrasonography of Superior Vena Cava, Guidance (ICD-10-PCS; 2020-02-10)
DX: A41.9 Sepsis, unspecified organism (principal); I21.4 Non-ST elevation (NSTEMI) myocardial infarction; I46.9 Cardiac arrest, cause unspecified; J96.01 Acute respiratory failure with hypoxia; R65.21 Severe sepsis with septic shock; E44.0 Moderate protein-calorie malnutrition; E11.22 Type 2 diabetes mellitus with diabetic chronic kidney disease; E11.51 Type 2 diabetes mellitus with diabetic peripheral angiopathy without gangrene; N18.6 End stage renal disease; Z99.2 Dependence on renal dialysis; E11.65 Type 2 diabetes mellitus with hyperglycemia; I13.2 Hypertensive heart and chronic kidney disease with heart failure and with stage 5 chronic kidney disease, or end stage renal disease; D63.8 Anemia in other chronic diseases classified elsewhere; E78.00 Pure hypercholesterolemia, unspecified; E87.2 Acidosis; I25.10 Atherosclerotic heart disease of native coronary artery without angina pectoris; I50.42 Chronic combined systolic (congestive) and diastolic (congestive) heart failure; E11.40 Type 2 diabetes mellitus with diabetic neuropathy, unspecified; E78.5 Hyperlipidemia, unspecified; G89.4 Chronic pain syndrome; F32.9 Major depressive disorder, single episode, unspecified; G93.40 Encephalopathy, unspecified; K21.9 Gastro-esophageal reflux disease without esophagitis; E11.21 Type 2 diabetes mellitus with diabetic nephropathy; E87.8 Other disorders of electrolyte and fluid balance, not elsewhere classified; Z20.828 Contact with and (suspected) exposure to other viral communicable diseases; I25.5 Ischemic cardiomyopathy; N39.0 Urinary tract infection, site not specified; Z86.14 Personal history of Methicillin resistant Staphylococcus aureus infection; Z95.1 Presence of aortocoronary bypass graft; Z86.73 Personal history of transient ischemic attack (TIA), and cerebral infarction without residual deficits; Z79.2 Long term (current) use of antibiotics; Z68.1 Body mass index [BMI] 19.9 or less, adult; Z79.01 Long term (current) use of anticoagulants; Z79.82 Long term (current) use of aspirin; Z79.4 Long term (current) use of insulin; Z79.899 Other long term (current) drug therapy; J69.0 Pneumonitis due to inhalation of food and vomit
CPT/HCPCS: 36415; 36573; 36600; 71045; 78580; 80048; 80053; 80061; 82375; 82728; 82805; 82962; 83605; 83880; 84145; 84439; 84443; 84484; 85025; 85379; 85384; 87077; 93005; 93970; 94002; 96365; 99291; C1725; J1265; J1650; J1815; J2250; J2270; J2370; J2543; J2704; J3370; J3490; J7030; J7050; J7060; C9803-CS; U0003-CS